=== PATIENT | male | born 1990 | race Caucasian/White ===

== ENCOUNTER → 2016-06-22 | Outpatient (CLI) | payer BC ==
[~2016-06-22] MED LIST: ADAL40KI; ALLO100T PO; APIX1TAB3 PO; AZAT50TA17 PO; BUDE1TAB PO; CALC1TAB9 PO; CHOL1000 PO; FOLI1TAB7 PO; MESA1.2T PO; MESA10002 PR; MESA4KIT PR; MULT-506 PO; PRED20TA PO; PROP20TA67 PO; SULF400T7 PO; SULF500T35 PO; TACR1CAP PO; TACR5CAP PO; TEST1INJ2; VEDO1INJ IV; [UNRECOGNIZED DRUG - CODE] PR; remicade IV
== END | disposition home or self-care (01) ==
LOC: C.LAB 12:13
PROVIDERS: ATTEND Internal Medicine Gastroenterology
DX: K51.90 Ulcerative colitis, unspecified, without complications (principal)

== ENCOUNTER → 2016-07-06 | Outpatient (CLI) | payer SELFPAY | END | disposition home or self-care (01) | LOC: C.LAB 12:25 | PROVIDERS: ATTEND Internal Medicine Gastroenterology | DX: K51.90 Ulcerative colitis, unspecified, without complications (principal) ==

== ENCOUNTER → 2016-10-05 | Outpatient (CLI) | payer BC ==
[~2016-10-05] MED LIST changes: -SULF400T7 PO; -TACR1CAP PO; -TACR5CAP PO
[2016-10-05 09:33] LABS: HEMATOCRIT 47.6 % (42-52)
== END | disposition home or self-care (01) ==
LOC: C.LAB 08:32
PROVIDERS: ATTEND Internal Medicine Endocrinology, Diabetes & Metabolism
DX: E29.1 Testicular hypofunction (principal)

== ENCOUNTER → 2017-04-22 | Outpatient (CLI) | payer BC, OTHER ==
[~2017-04-22] MED LIST changes: -ADAL40KI
== END | disposition home or self-care (01) ==
LOC: C.LAB 07:45
PROVIDERS: ATTEND Internal Medicine Endocrinology, Diabetes & Metabolism
DX: E29.1 Testicular hypofunction (principal)

== ENCOUNTER → 2017-07-13 | Outpatient (CLI) | payer OTHER ==
[~2017-07-13] MED LIST changes: -FOLI1TAB7 PO; +FOLI1TAB8 PO
[2017-07-13 18:06] LABS: BASO % 0.3 %; BASO ABS # 0.02 K/uL (0-0.2); HEMATOCRIT 49.6 % (42-52); HEMOGLOBIN 17.4 g/dL (14.0-18.0); IG# 0.14 K/uL (0.00-0.02); LYMPH ABS # 0.55 K/uL (1.2-3.4); MEAN CORPUSCULAR HGB CONC 35.1 g/dl (32-36); MEAN PLATELET VOLUME 8.9 fL (7.4-10.4); MONO % 8.4 %; MONO ABS # 0.66 K/uL (0.11-0.59); NEUT % 82.5 %; NEUT ABS # 6.48 K/uL (1.4-6.5); NUCLEATED RED BLOOD CELL ABS 0.02 K/uL (0-0); PLATELET COUNT 211 K/uL (130-400); RED CELL DISTRIBUTION WIDTH CV 15.6 % (11.5-14.5); RED CELL DISTRIBUTION WIDTH SD 64.9 fL (36.4-46.3); WHITE BLOOD COUNT 7.85 K/uL (4.8-10.8)
[2017-07-19 18:08] LABS: MUMPS VIRUS ANTIBODY IGM <1:20
== END | disposition home or self-care (01) ==
LOC: C.LAB 17:15
PROVIDERS: ATTEND Internal Medicine
DX: K11.20 Sialoadenitis, unspecified (principal)

== ENCOUNTER 2023-02-23 13:48 | Inpatient (IN) ==
--- NOTE | 2023-02-23 13:57 | ED Triage Note ---
Date of Service February 23, 2023 History of Present Illness This patient was briefly evaluated while in triage. An abbreviated physical exam was performed. This patient is a 32-year-old Male who presents to the ED for evaluation of fever and coughing up blood. The patient did have an abnormal CT scan 1 week ago, showing swollen lymph nodes. Blood is bright red in color, with occasional clots. Cough has been ongoing for the past 6 weeks. The patient has also had notable weight loss. The patient did see a PCP and chinese instructor for a condition. Patient also history of ulcerative colitis, history of lower extremity DVTs. Patient is also currently on Eliquis. Physical Exam CONSTITUTIONAL: Healthy and well nourished. Patient does not appear in any acute distress. HEENT: No scleral icterus or conjunctival injection. RESPIRATORY: Clear to auscultation bilaterally with no wheezing, crackles, rhonchi or stridor. CARDIOVASCULAR: Regular rate and rhythm with no murmurs, rubs or gallops. INTEGUMENTARY: No rash or other significant dermatologic conditions noted. HEMATOLOGIC: No ecchymosis or petechiae. PSYCHIATRIC: Positive affect. NEUROLOGIC: No focal neurologic deficits noted. Initial orders for labs and / or imaging were placed and patient was placed in the waiting area until a bed is available. Please see further documentation for the full ED course.
[2023-02-23] MEDS ORDERED: SODIUM CHLORIDE 0.9% 2,000 ML IV ONE (14:18)
[2023-02-23] MEDS ORDERED: SODIUM CHLORIDE 0.9% 250 ML IV ONE (14:18)
[2023-02-23] MEDS ORDERED: cefTRIAXone SODIUM 2,000 MG/70 ML BAG IV STA (14:19)
[2023-02-23] MEDS ORDERED: HYDROCORTISONE SOD SUCCINATE 100 MG/2 ML VIAL IV STA (14:20)
--- NOTE | 2023-02-23 14:23 | Emergency Department Note ---
Impression & Plan Multifocal pneumonia, Adrenal insufficiency, Hemoptysis ED Provider Note NAME: JENNIFER BENÍTEZ AGE: 32 SEX: M : 1990 ARRIVES VIA: Walk-In INFORMANT: Patient ED PROVIDER(S): Francisco Javier Barrios DO CHIEF COMPLAINT: coughing up blood and fever HPI: Patient is a 32-year-old male who presents the ER for cough and congestion which have been present for the past 2 weeks. Recently over the past 24 to 48 hours she has been coughing up blood. He admits to fevers of 101-102. Does have a history of ulcerative colitis and adrenally insufficient as on immune modulators. Does take Eliquis for previous DVTs and PEs. Has not missed any doses. Does feel very weak and rundown. Additional history given by mom who was present at bedside in regards to his past medical history. ADDITIONAL HISTORY OBTAINED: Per HPI Chronic Medical/Social Conditions Affecting Care: Per HPI PAST MEDICAL HISTORY:See Below PAST SURGICAL HISTORY:See Below FAMILY HISTORY:See Below SOCIAL HISTORY:See Below HOME MEDICATIONS:See Below ALLERGIES:See Below VITALS:See Below PHYSICAL EXAMINATION: GENERAL: Sitting up in bed, alert, chronically ill-appearing, disheveled, intermittent cough EYE EXAM: normal conjunctiva. PERRL and EOM's grossly intact. OROPHARYNX: mucous membranes are moist NECK: supple, no nuchal rigidity, no adenopathy, non-tender LUNGS: Clear to auscultation. Normal chest wall mechanics HEART: Tachycardic, S1 normal and S2 normal ABDOMEN: abdomen soft, non-tender, normo-active bowel sounds, no masses, no rebound or guarding. UPPER EXTREMITIES: upper extremities are grossly normal. LOWER EXTREMITIES: No pitting edema. NEURO EXAM: Normal sensorium, cranial nerves II-XII grossly intact, normal speech, no gross weakness of arms, no gross weakness of legs. MEDICAL DECISION MAKING: Patient is a 32-year-old male who presents ER for above-stated complaint. IV was established blood work was obtained. External history is obtained from mom at bedside. External records reviewed as described below. Patient was found to be tachycardic and tachypneic. Labs show leukocytosis of nearly 17,000. No significant anemia. Platelets elevated at 535. INR 1.2. Creatinine 1.5. Lactate was not elevated. Mild transaminitis. Pro-Rd was not elevated. UA with nitrates although likely secondary to the bilirubin. It was otherwise contaminated. Not convincing for UTI. Viral panel was negative and CT of the angio of the chest shows multifocal pneumonia per radiology. Patient was given IV Rocephin and azithromycin as well as IV fluids External Records Reviewed: PCP visit reviewed which showed abnormal CT of the chest with hilar adenopathy Consults/Care Managements Discussions: Per HPI Triage Nursing notes reviewed. Limited review of prior medical records performed Vital Signs: reviewed and remarkable for no significant abnormalities Differential diagnosis: Differential diagnosis includes etiologies such as sepsis, UTI, pneumonia, metabolic, electrolyte abnormalities, cardiac sources, intracerebral event, toxicologic, neurological, as well as others were entertained. ER treatment provided: See below Diagnostics interpreted by me include EKG and cardiac monitoring as listed below: -Cardiac Monitoring: An order was placed for continuous cardiac monitoring. The monitor shows a rate of 125 with sinus rhythm. -ECG: Sinus tachycardia rate of 120 Normal axis No PVCs QTc 422 -Laboratory studies:Interpreted by me as stated above in MDM and shown below. 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 See pt portal msg 04/26/21 for historical details. Bleeding ulcer Cellulitis of right leg Chronic ulcer of lower extremity DVT (deep venous thrombosis) Enteropathic arthritis Erythema nodosum Osteopenia Pyoderma gangrenosum Septic arthritis (01/17/14) Thrombophlebitis Ulcerative colitis Ureteric stone Vitamin D deficiency Surgical History No history of previous surgery Family History Denies family history of Ovarian cancer Prostate cancer Myocardial infarction Breast cancer Colorectal cancer Social History Smoking Status: Never smoker Second Hand Exposure: No; Hx Alcohol Use: No Hx Substance Use: No Preferred Language: Faroese Visual Impairment: No Limitations Hearing Ability: Normal marital status: Single Current Living Situation: Family current occupational status: student Feels Safe at Home: Yes Childhood Exposure to Second-Hand Smoke: No Dental Care, Regularly: Yes Physical Activity Frequency: Daily Seatbelt Use: always Sunscreen Use: Yes Allergies Allergies Allergy/AdvReac Type Severity Reaction Status Date / Time infliximab AdvReac Mild PLZ MIX Verified 02/18/23 10:17 REMICADE IN 500ML - PT DOESNT TOLERATE SMALLER VOL vedolizumab AdvReac Mild 600mg - Verified 02/18/23 10:17 must be in 500ml to tolerate Home Meds Home Medications Medication Instructions Recorded Confirmed calcium citrate 315 mg-vitamin D3 2 tabs PO BIDM ##0 03/08/15 02/23/23 5 mcg (200 unit) tablet (Calcium Citrate + D) multivitamin,tx-minerals 1 tab PO QPM #0 tabs 03/08/15 02/23/23 allopurinol 100 mg tablet 100 mg PO QPM #0 tabs 09/08/15 02/23/23 infliximab 100 mg intravenous 20 mg IV q 4 wks #0 ea 11/12/20 02/23/23 solution (Remicade) azathioprine 50 mg tablet 100 mg PO HS #0 tabs 04/30/21 02/23/23 apixaban 5 mg tablet 5 mg PO BID ##0 02/17/23 02/23/23 bupropion HCl 200 mg tablet,12 hr 200 mg PO BID 02/23/23 02/23/23 sustained-release cholecalciferol (vitamin D3) 25 8,000 mcg PO HS 02/23/23 02/23/23 mcg (1,000 unit) tablet (Vitamin D3) folic acid 1 mg tablet 1 mg PO QAM 02/23/23 02/23/23 hydrocortisone 5 mg tablet See Rx Instructions .Route .COMPLEX 02/23/23 02/23/23 levothyroxine 125 mcg tablet 125 mcg PO DAILYBB 02/23/23 02/23/23 liothyronine 25 mcg tablet 25 mcg PO DAILYBB 02/23/23 02/23/23 ondansetron 4 mg disintegrating 4 mg translingual Q8 PRN Nausea 02/23/23 02/23/23 tablet testosterone cypionate 200 mg/mL 250 mg IM WK 02/23/23 02/23/23 intramuscular oil Results & Data (ED) Vital Signs Vital Signs - 24 hr 02/23/23 13:53 02/23/23 14:37 02/23/23 16:10 Temperature 36.8 C 36.8 C Temperature Source Temporal Artery Scan Oral Pulse Rate 177 H 120 H Pulse Rate [Apical] 105 H Respiratory Rate 18 20 Respiratory Effort / Characteristics Non-Labored Respiratory Depth Normal Blood Pressure 116/75 Blood Pressure [Right Arm] 139/93 Blood Pressure Mean 88 Blood Pressure Mean [Right Arm] 108 Blood Pressure Position [Right Arm] Lying Pulse Oximetry 96 97 Oxygen Delivery Method Room Air Room Air Sepsis Recent Fever Within 48 Hours No Sepsis New/Unexplained Change in Mental Status No Sepsis Action Taken by Nursing No Action Required 02/23/23 15:10 02/23/23 18:04 02/23/23 18:05 Temperature Temperature Source Pulse Rate 109 H 102 H 99 H Pulse Rate [Apical] Respiratory Rate 31 H 24 26 H Respiratory Effort / Characteristics Respiratory Depth Blood Pressure 117/86 Blood Pressure [Right Arm] Blood Pressure Mean 92 Blood Pressure Mean [Right Arm] Blood Pressure Position [Right Arm] Pulse Oximetry 96 Oxygen Delivery Method Room Air Sepsis Recent Fever Within 48 Hours Sepsis New/Unexplained Change in Mental Status Sepsis Action Taken by Nursing Laboratory Data 02/23/23 14:16 02/23/23 14:16 Lab Results 02/23/23 02/23/23 02/23/23 Range/Units 14:10 14:16 14:16 WBC 16.69 H (4.8-10.8) K/ul RBC 4.58 L (4.70-6.10) M/uL Hgb 13.3 L (14.0-18.0) g/dl Hct 40.6 L (42.0-52.0) % MCV 88.6 (80.0-100.0) fL MCH 29.0 (25.0-34.0) pg MCHC 32.8 (32.0-36.0) g/dL RDW Std Deviation 57.4 H (36.4-46.3) fL RDW Coeff of Sidra 18.0 H (11.5-14.5) % Plt Count 535 H (130-400) K/uL MPV 8.2 L (9.4-12.4) fL Immature Gran % (Auto) 0.6 % Neut % (Auto) 87.1 % Lymph % (Auto) 4.9 % Winston % (Auto) 6.7 % Eos % (Auto) 0.4 % Baso % (Auto) 0.3 % Neut # (Auto) 14.54 H (1.40-6.50) K/uL Lymph # (Auto) 0.81 L (1.20-3.40) K/uL Winston # (Auto) 1.12 H (0.11-0.59) K/uL Eos # (Auto) 0.07 (0.00-0.50) K/uL Baso # (Auto) 0.05 (0.00-0.20) K/uL Immature Gran # (Auto) 0.10 (0.01-0.20) K/uL PT (9.0-12.0) Seconds INR (0.9-1.1) APTT (21.0-31.0) Seconds PTT Ratio Sodium 137 (136-145) mmol/L Potassium 4.1 (3.5-5.1) mmol/L Chloride 101 (98-107) mmol/L Carbon Dioxide 28 (21-32) mmol/L Anion Gap 8 (3-11) BUN 17 (6-23) mg/dl Creatinine 1.56 H D (0.6-1.4) mg/dl Est Cr Clr Drug Dosing 66.3 ml/min Est GFR ( Amer) 67.1 ml/min Est GFR (Non-Af Amer) 57.9 ml/min BUN/Creatinine Ratio 10.9 (10-20) Glucose 118 H (70-99(Fasting)) mg/dl Lactate (0.4-2.0) mmol/L Calcium 9.3 (8.6-10.3) mg/dl Magnesium 1.8 (1.7-2.4) mg/dl Total Bilirubin 1.4 H (0.2-1.0) mg/dl Direct Bilirubin 0.6 H (0-0.2) mg/dl AST 40 H (13-39) U/L ALT 57 H (7-52) U/L Alkaline Phosphatase 110 H (34-104) U/L Total Protein 6.8 (6.0-8.3) gm/dl Albumin 3.4 (3.4-5.0) gm/dl Procalcitonin (0-0.5) ng/ml Urine Color [place] Urine Appearance Clear (Clear) Urine pH 6.0 (4.5-7.5) Ur Specific [place] 1.032 H (1.000-1.030) Urine Protein 1+ H (Negative) Urine Glucose (UA) Negative (Negative) Urine Ketones Trace H (Negative) Urine Blood 1+ H (Negative) Urine Nitrite Positive A (Negative) Urine Bilirubin 1+ H (Negative) Urine Urobilinogen Negative (Negative) Ur Leukocyte Esterase Trace H (Negative) Urine WBC (Auto) 1-5 (0-5) /hpf Urine RBC (Auto) 5-10 H (0-4) /hpf U Hyaline Cast (Auto) 5-10 H (0-5) /lpf U Epithel Cells (Auto) 10-20 H (0-5) /lpf Urine Bacteria (Auto) Negative (Negative) Urine Yeast Not Reportable Urine Sperm Present A (None Prsent) Adenovirus (PCR) (NotDetected) B. pertussis DNA (PCR) (NotDetected) B.parapertussis DNA PCR (NotDetected) C. pneumoniae DNA (PCR) (NotDetected) Coronavirus OC43 (PCR) (NotDetected) Coronavirus HKU1 (PCR) (NotDetected) Coronavirus 229E (PCR) (NotDetected) SARS-CoV-2 (PCR) (NotDetected) Coronavirus NL63 (PCR) (NotDetected) Human Metapneumovir PCR (NotDetected) Influenza Type A (PCR) (NotDetected) Influenza Type B (PCR) (NotDetected) M. pneumoniae (PCR) (NotDetected) Parainfluenza 1 (PCR) (NotDetected) Parainfluenza 2 (PCR) (NotDetected) Parainfluenza 3 (PCR) (NotDetected) Parainfluenza 4 (PCR) (NotDetected) RSV (PCR) (NotDetected) Entero/Rhino (PCR) (NotDetected) 02/23/23 02/23/23 02/23/23 Range/Units 14:16 14:16 14:25 WBC (4.8-10.8) K/ul RBC (4.70-6.10) M/uL Hgb (14.0-18.0) g/dl Hct (42.0-52.0) % MCV (80.0-100.0) fL MCH (25.0-34.0) pg MCHC (32.0-36.0) g/dL RDW Std Deviation (36.4-46.3) fL RDW Coeff of Sidra (11.5-14.5) % Plt Count (130-400) K/uL MPV (9.4-12.4) fL Immature Gran % (Auto) % Neut % (Auto) % Lymph % (Auto) % Winston % (Auto) % Eos % (Auto) % Baso % (Auto) % Neut # (Auto) (1.40-6.50) K/uL Lymph # (Auto) (1.20-3.40) K/uL Winston # (Auto) (0.11-0.59) K/uL Eos # (Auto) (0.00-0.50) K/uL Baso # (Auto) (0.00-0.20) K/uL Immature Gran # (Auto) (0.01-0.20) K/uL PT 13.4 H (9.0-12.0) Seconds INR 1.2 H (0.9-1.1) APTT 35.0 H (21.0-31.0) Seconds PTT Ratio 1.2 Sodium (136-145) mmol/L Potassium (3.5-5.1) mmol/L Chloride (98-107) mmol/L Carbon Dioxide (21-32) mmol/L Anion Gap (3-11) BUN (6-23) mg/dl Creatinine (0.6-1.4) mg/dl Est Cr Clr Drug Dosing ml/min Est GFR ( Amer) ml/min Est GFR (Non-Af Amer) ml/min BUN/Creatinine Ratio (10-20) Glucose (70-99(Fasting)) mg/dl Lactate (0.4-2.0) mmol/L Calcium (8.6-10.3) mg/dl Magnesium (1.7-2.4) mg/dl Total Bilirubin (0.2-1.0) mg/dl Direct Bilirubin (0-0.2) mg/dl AST (13-39) U/L ALT (7-52) U/L Alkaline Phosphatase (34-104) U/L Total Protein (6.0-8.3) gm/dl Albumin (3.4-5.0) gm/dl Procalcitonin 0.26 (0-0.5) ng/ml Urine Color Urine Appearance (Clear) Urine pH (4.5-7.5) Ur Specific [place] (1.000-1.030) Urine Protein (Negative) Urine Glucose (UA) (Negative) Urine Ketones (Negative) Urine Blood (Negative) Urine Nitrite (Negative) Urine Bilirubin (Negative) Urine Urobilinogen (Negative) Ur Leukocyte Esterase (Negative) Urine WBC (Auto) (0-5) /hpf Urine RBC (Auto) (0-4) /hpf U Hyaline Cast (Auto) (0-5) /lpf U Epithel Cells (Auto) (0-5) /lpf Urine Bacteria (Auto) (Negative) Urine Yeast Urine Sperm (None Prsent) Adenovirus (PCR) Not Detected (NotDetected) B. pertussis DNA (PCR) Not Detected (NotDetected) B.parapertussis DNA PCR Not Detected (NotDetected) C. pneumoniae DNA (PCR) Not Detected (NotDetected) Coronavirus OC43 (PCR) Not Detected (NotDetected) Coronavirus HKU1 (PCR) Not Detected (NotDetected) Coronavirus 229E (PCR) Not Detected (NotDetected) SARS-CoV-2 (PCR) Not Detected (NotDetected) Coronavirus NL63 (PCR) Not Detected (NotDetected) Human Metapneumovir PCR Not Detected (NotDetected) Influenza Type A (PCR) Not Detected (NotDetected) Influenza Type B (PCR) Not Detected (NotDetected) M. pneumoniae (PCR) Not Detected (NotDetected) Parainfluenza 1 (PCR) Not Detected (NotDetected) Parainfluenza 2 (PCR) Not Detected (NotDetected) Parainfluenza 3 (PCR) Not Detected (NotDetected) Parainfluenza 4 (PCR) Not Detected (NotDetected) RSV (PCR) Not Detected (NotDetected) Entero/Rhino (PCR) Not Detected (NotDetected) 02/23/23 Range/Units 14:55 WBC (4.8-10.8) K/ul RBC (4.70-6.10) M/uL Hgb (14.0-18.0) g/dl Hct (42.0-52.0) % MCV (80.0-100.0) fL MCH (25.0-34.0) pg MCHC (32.0-36.0) g/dL RDW Std Deviation (36.4-46.3) fL RDW Coeff of Sidra (11.5-14.5) % Plt Count (130-400) K/uL MPV (9.4-12.4) fL Immature Gran % (Auto) % Neut % (Auto) % Lymph % (Auto) % Winston % (Auto) % Eos % (Auto) % Baso % (Auto) % Neut # (Auto) (1.40-6.50) K/uL Lymph # (Auto) (1.20-3.40) K/uL Winston # (Auto) (0.11-0.59) K/uL Eos # (Auto) (0.00-0.50) K/uL Baso # (Auto) (0.00-0.20) K/uL Immature Gran # (Auto) (0.01-0.20) K/uL PT (9.0-12.0) Seconds INR (0.9-1.1) APTT (21.0-31.0) Seconds PTT Ratio Sodium (136-145) mmol/L Potassium (3.5-5.1) mmol/L Chloride (98-107) mmol/L Carbon Dioxide (21-32) mmol/L Anion Gap (3-11) BUN (6-23) mg/dl Creatinine (0.6-1.4) mg/dl Est Cr Clr Drug Dosing ml/min Est GFR ( Amer) ml/min Est GFR (Non-Af Amer) ml/min BUN/Creatinine Ratio (10-20) Glucose (70-99(Fasting)) mg/dl Lactate 1.3 (0.4-2.0) mmol/L Calcium (8.6-10.3) mg/dl Magnesium (1.7-2.4) mg/dl Total Bilirubin (0.2-1.0) mg/dl Direct Bilirubin (0-0.2) mg/dl AST (13-39) U/L ALT (7-52) U/L Alkaline Phosphatase (34-104) U/L Total Protein (6.0-8.3) gm/dl Albumin (3.4-5.0) gm/dl Procalcitonin (0-0.5) ng/ml Urine Color Urine Appearance (Clear) Urine pH (4.5-7.5) Ur Specific [place] (1.000-1.030) Urine Protein (Negative) Urine Glucose (UA) (Negative) Urine Ketones (Negative) Urine Blood (Negative) Urine Nitrite (Negative) Urine Bilirubin (Negative) Urine Urobilinogen (Negative) Ur Leukocyte Esterase (Negative) Urine WBC (Auto) (0-5) /hpf Urine RBC (Auto) (0-4) /hpf U Hyaline Cast (Auto) (0-5) /lpf U Epithel Cells (Auto) (0-5) /lpf Urine Bacteria (Auto) (Negative) Urine Yeast Urine Sperm (None Prsent) Adenovirus (PCR) (NotDetected) B. pertussis DNA (PCR) (NotDetected) B.parapertussis DNA PCR (NotDetected) C. pneumoniae DNA (PCR) (NotDetected) Coronavirus OC43 (PCR) (NotDetected) Coronavirus HKU1 (PCR) (NotDetected) Coronavirus 229E (PCR) (NotDetected) SARS-CoV-2 (PCR) (NotDetected) Coronavirus NL63 (PCR) (NotDetected) Human Metapneumovir PCR (NotDetected) Influenza Type A (PCR) (NotDetected) Influenza Type B (PCR) (NotDetected) M. pneumoniae (PCR) (NotDetected) Parainfluenza 1 (PCR) (NotDetected) Parainfluenza 2 (PCR) (NotDetected) Parainfluenza 3 (PCR) (NotDetected) Parainfluenza 4 (PCR) (NotDetected) RSV (PCR) (NotDetected) Entero/Rhino (PCR) (NotDetected) Administered Medications Discontinued Medications Hydrocortisone Sodium Succinate (Hydrocortisone Sod Succinate 100 Mg/2 Ml Vial) 50 mg IV NOW STA Stop: 02/23/23 14:21 Last Admin: 02/23/23 14:38 Dose: 50 mg Documented By: ARANZA Sodium Chloride (Nss) 2,000 mls @ 999 mls/hr IV .Q2H1M ONE Stop: 02/23/23 16:18 Last Infusion: 02/23/23 16:57 Dose: 0 mls/hr Documented By: Admin: 02/23/23 14:36 Dose: 999 mls/hr Documented By: ARANZA Sodium Chloride (Nss) 250 mls @ 999 mls/hr IV .Q16M ONE Stop: 02/23/23 14:33 Last Infusion: 02/23/23 15:24 Dose: 0 mls/hr Documented By: Admin: 02/23/23 14:36 Dose: 999 mls/hr Documented By: ARANZA Ceftriaxone Sodium (Rocephin) 2,000 mg in 70 mls @ 140 mls/hr IV NOW STA Stop: 02/23/23 14:48 Last Infusion: 02/23/23 16:35 Dose: 0 mls/hr Documented By: Admin: 02/23/23 15:22 Dose: 140 mls/hr Documented By: ARELI Azithromycin 500 mg/ Dextrose 255 mls @ 127.5 mls/hr IV NOW STA Stop: 02/23/23 18:24 Last Infusion: 02/23/23 19:13 Dose: 0 mls/hr Documented By: Admin: 02/23/23 16:57 Dose: 127.5 mls/hr Documented By: ARELI Ioversol (Optiray 320 125ml) 119 ml IV ONCE ONE Stop: 02/23/23 15:45 Last Admin: 02/23/23 15:45 Dose: 119 ml Documented By: DANYEL Imaging Data Radiologist's Impression: Chest CTA 02/23/23 14:18 CT angio chest PE protocol CLINICAL HISTORY: PE, coughing up blood TECHNIQUE: Multidetector row helical CT of the chest was performed with angiographic protocol. Coronal and sagittal reformations were obtained. Coronal and sagittal MIPS were obtained from the axial data set and were submitted for review. Automated dose lowering techniques and/or adjustment according to patient size were utilized for this exam. CT DOSE: 788.99 mGy.cm Comparison: Comparison is made to CT chest 02/11/2023 and chest radiograph 02/23/2023 FINDINGS: Lungs and pleura: There is patchy consolidation and nodularity throughout the lungs. Small bilateral pleural effusions are seen. Heart and pericardium: Heart size is normal. No pericardial effusion. Vessels: Evaluation for pulmonary embolism is limited due to suboptimal contrast timing. No evidence of central, lobar, or segmental embolus. Mediastinum and mitzi: Numerous enlarged bilateral mediastinal and hilar lymph nodes are seen. Chest wall and lower neck: Unremarkable. Abdomen: Unremarkable. Bones: Unremarkable. IMPRESSION: 1. No acute abnormality and in particular no evidence of pulmonary embolus. 2. Multifocal consolidative opacities compatible with pneumonia with reactive lymphadenopathy. 3. Small bilateral pleural effusions. ACT 112: Negative or not required by law. Electronically signed by: Neto Ruelas M.D. 02/23/2023 4:02 PM Chest X-Ray 02/23/23 14:18 XR chest 1V portable HISTORY: Sepsis COMPARISON: Chest 02/08/2023. FINDINGS: No pneumothorax. No pleural effusions. The cardiac silhouette is normal in size. No evidence for pulmonary edema. Patchy airspace opacities within the bilateral mid to lower lung zones. This has slightly progressed in the interval. No acute fractures. IMPRESSION: Patchy bilateral airspace opacities within the mid to lower lung zones which has slightly progressed. This likely represents a pneumonia and could be due to a viral process. ACT 112: Negative or not required by law. Electronically signed by: Isaias Bolivar M.D. 02/23/2023 3:22 PM Discharge Plan Visit Data Chief Complaint: Fever ED Provider: Francisco Javier Barrios Discharge Problem: Multifocal pneumonia, Adrenal insufficiency, Hemoptysis Forms Stand Alone Forms: My [facility] Prescriptions Prescriptions: No Action multivitamin,tx-minerals Tablet 1 tab PO QPM Qty: 0 calcium citrate-vitamin D3 [Calcium Citrate + D] 315-200 mg-unit Tablet 2 tabs PO BIDM Qty: 0 allopurinol 100 mg Tablet 100 mg PO QPM Qty: 0 Remicade 100 mg recon soln 20 mg IV q 4 wks Qty: 0 apixaban 5 mg tablet 5 mg PO BID Qty: 0 azathioprine 50 mg tablet 100 mg PO HS Qty: 0 liothyronine 25 mcg tablet 25 mcg PO DAILYBB testosterone cypionate 200 mg/mL oil 250 mg IM WK Rx Instructions: take on tuesday cholecalciferol (vitamin D3) [Vitamin D3] 25 mcg (1,000 unit) Tablet 8,000 mcg PO HS hydrocortisone 5 mg tablet See Rx Instructions .ROUTE .COMPLEX Rx Instructions: take 15mg orally in the morning;and take 5mg at lunchtime levothyroxine 125 mcg tablet 125 mcg PO DAILYBB folic acid 1 mg Tablet 1 mg PO QAM bupropion HCl 200 mg tablet sustained-release 12 hr 200 mg PO BID ondansetron 4 mg tablet,disintegrating 4 mg translingual Q8 PRN (Reason: Nausea) Referrals Referrals: ProDarren MD [Primary Care Provider] -
[2023-02-23 14:44] LABS: Basophils # (auto) 0.05 K/uL (0.00-0.20); Basophils % (auto) 0.3 %; Eosinophils # (auto) 0.07 K/uL (0.00-0.50); Eosinophils % (auto) 0.4 %; Hematocrit (blood only) 40.6 % (42.0-52.0); Hemoglobin 13.3 g/dl (14.0-18.0); Immature Granulocytes % (auto) 0.6 %; Lymphocytes # (auto) 0.81 K/uL (1.20-3.40); Lymphocytes % (auto) 4.9 %; Mean Corpuscular Hgb Conc 32.8 g/dL (32.0-36.0); Mean Corpuscular Volume 88.6 fL (80.0-100.0); Mean Platelet Volume 8.2 fL (9.4-12.4); Monocytes # (auto) 1.12 K/uL (0.11-0.59); Monocytes % (auto) 6.7 %; Neutrophils # (auto) 14.54 K/uL (1.40-6.50); Neutrophils % (auto) 87.1 %; Platelet Count 535 K/uL (130-400); RDW Standard Deviation 57.4 fL (36.4-46.3); Red Blood Count 4.58 M/uL (4.70-6.10); White Blood Count 16.69 K/ul (4.8-10.8)
[2023-02-23 14:46] LABS: Appearance Urine Clear (Clear); Bacteria Urine Automated Negative (Negative); Blood Urine 1+ (Negative); Color Urine Orange; Glucose Urine UA Negative (Negative); Ketones Urine Trace (Negative); Leukocyte Esterase Urine Trace (Negative); Nitrite Urine Positive (Negative); Protein Urine 1+ (Negative); Specific Gravity Urine 1.032 (1.000-1.030); Urobilinogen Urine Negative (Negative)
[2023-02-23 15:05] LABS: Albumin Level 3.4 gm/dl (3.4-5.0); BUN Creatinine Ratio 10.9 (10-20); Bilirubin Direct 0.6 mg/dl (0-0.2); Bilirubin,Total 1.4 mg/dl (0.2-1.0); Calcium 9.3 mg/dl (8.6-10.3); Creatinine Clr Calc Pharmacy 66.3 ml/min; Est GFR (African American) 67.1 ml/min; Est GFR (Non-African American) 57.9 ml/min; Magnesium 1.8 mg/dl (1.7-2.4); Potassium 4.1 mmol/L (3.5-5.1); Total Protein 6.8 gm/dl (6.0-8.3)
[2023-02-23 15:20] LABS: Bilirubin Urine 1+ (Negative)
--- NOTE | 2023-02-23 15:23 | XRay Report ---
XR chest 1V portable HISTORY: Sepsis COMPARISON: Chest 02/08/2023. FINDINGS: No pneumothorax. No pleural effusions. The cardiac silhouette is normal in size. No evidenc e for pulmonary edema. Patchy airspace opacities within the bilateral mid to lower lung zones. This h as slightly progressed in the interval. No acute fractures. IMPRESSION: Patchy bilateral airspace opacities within the mid to lower lung zones which has slightly progressed. This likely represents a pneumonia and could be due to a viral process. ACT 112: Negative or not required by law. Electronically signed by: Isaias Bolivar M.D. 02/23/2023 3:22 PM
[2023-02-23 15:32] LABS: Adenovirus PCR Not Detected (NotDetected); Bordetella parapertussis PCR Not Detected (NotDetected); Bordetella pertussis PCR Not Detected (NotDetected); Chlamydia pneumoniae PCR Not Detected (NotDetected); Coronavirus 229E PCR Not Detected (NotDetected); Coronavirus CoV-2 (COVID19)PCR Not Detected (NotDetected); Coronavirus HKU1 PCR Not Detected (NotDetected); Coronavirus NL63 PCR Not Detected (NotDetected); Coronavirus OC43PCR Not Detected (NotDetected); Human Metapneumovirus PCR Not Detected (NotDetected); Influenza A PCR Not Detected (NotDetected); Influenza B PCR Not Detected (NotDetected); Mycoplasma pneumoniae PCR Not Detected (NotDetected); Parainfluenza Virus 1 PCR Not Detected (NotDetected); Parainfluenza Virus 2 PCR Not Detected (NotDetected); Parainfluenza Virus 3 PCR Not Detected (NotDetected); Parainfluenza Virus 4 PCR Not Detected (NotDetected); Respiratory Syncytial VirusPCR Not Detected (NotDetected); Rhinovirus/Enterovirus PCR Not Detected (NotDetected)
[2023-02-23 15:33] LABS: INR 1.2 (0.9-1.1); Partial Thromboplastin Ratio 1.2; Prothrombin Time 13.4 Seconds (9.0-12.0)
[2023-02-23] MEDS ORDERED: OPTIRAY 320 125ml IV ONE (15:44)
--- NOTE | 2023-02-23 16:04 | CT Scan Report ---
CT angio chest PE protocol CLINICAL HISTORY: PE, coughing up blood TECHNIQUE: Multidetector row helical CT of the chest was performed with angiographic protocol. Valdes l and sagittal reformations were obtained. Coronal and sagittal MIPS were obtained from the axial laura a set and were submitted for review. Automated dose lowering techniques and/or adjustment according to patient size were utilized for this exam. CT DOSE: 788.99 mGy.cm Comparison: Comparison is made to CT chest 02/11/2023 and chest radiograph 02/23/2023 FINDINGS: Lungs and pleura: There is patchy consolidation and nodularity throughout the lungs. Small bilateral pleural effusions are seen. Heart and pericardium: Heart size is normal. No pericardial effusion. Vessels: Evaluation for pulmonary embolism is limited due to suboptimal contrast timing. No evidence of central, lobar, or segmental embolus. Mediastinum and mitzi: Numerous enlarged bilateral mediastinal and hilar lymph nodes are seen. Chest wall and lower neck: Unremarkable. Abdomen: Unremarkable. Bones: Unremarkable. IMPRESSION: 1. No acute abnormality and in particular no evidence of pulmonary embolus. 2. Multifocal consolidative opacities compatible with pneumonia with reactive lymphadenopathy. 3. Small bilateral pleural effusions. ACT 112: Negative or not required by law. Electronically signed by: Neto Ruelas M.D. 02/23/2023 4:02 PM
[2023-02-23 16:10] LABS: Sperm Urine Present (None Prsent)
[2023-02-23] MEDS ORDERED: AZITHROMYCIN 500 MG in DEXTROSE 5% 250 ML IV STA (16:25)
--- NOTE | 2023-02-23 19:24 | History & Physical Report ---
Date of Service February 23, 2023 Assessment & Plan (1) Multifocal pneumonia: Plan: Fever, chills suspect multifocal pneumonia Patient with cough, fever, chills, hemoptysis as outpt. was treated as outpatient with Bactrim without improvement Patient with underlying immunocompromise on infliximab/azathioprine Leukocytosis of 16, tachycardic and tachypneic at presentation. Lactate normal. 30 cc/kg actual body weight 2070 cc. Patient has received 2250 cc by time of hospitalist consultation. Has received Rocephin/azithromycin. No history of resistant infections. Given high burden of illness, failure to improve on Bactrim/azithromycin will continue on cefepime/doxy. MRSA nares pending, if positive add vancomycin. Patient extremely concerned about C. difficile, and notes his family have very high risk of both acquiring C. difficile due to his immunocompromise and morbidity due to his underlying ulcerative colitis and comorbidities. Will place on prophylactic Vanco p.o. daily while on broad antibiotics DDx includes sarcoid, granulomatous disease for which he was pending EBUS. Has a history of mediastinal lymphadenopathy. DDx includes infectious/autoimmune/lymphoma. apixaban has been held in the setting of possible EBUS and hemoptysis. Patient did discuss this with pulmonology both [place] [facility] and male. If possible male prefers to have this performed at their clinic and he was scheduled in 2 weeks. EKG sinus tachycardia on admission BC pending Sputum culture ordered Fungitell pending - Susana level pending MARCIA Creatinine 1.56, baseline approximately 1.28 Suspect prerenal in the setting of pneumonia. Fluids as noted, trend daily. Renally dose medications as needed Ulcerative colitis Infliximab/azathioprine temporarily held - No infusions due until next tuesday No signs of acute flare Adrenal insufficiency, hypopituitarism Home dosing hydrocortisone 15 mg a.m., 5 mg lunchtime Received 50 mg hydrocortisone while in ER We will continue stress dosing 30 mg a.m./10 mg p.m. - Testosterone IM on Tuesdays. Took 02/22. Additional dosing not currently indicated Hypothyroidism Continue Synthroid, liothyronine Recurrent DVT 2014 and 2015. Suspected w/ chronic inflammatory state Compliant with apixaban. Held pending pulm eval and with hemoptysis Depression/anxiety/PTSD With stress around his illness which has contributed to IBD flares in the past Follows with [facility] psychologist Dr. Opheim Buproprion 200mg PO BID working well for him. History of autoimmune hepatitis, hyperbilirubinemia, transaminitis - Follows w/ [facility]. Dr. Sheppard. Continue steroids as noted Trend LFTs daily T. bili, transaminases mildly elevated near prior baseline range on admission DVT prophylaxis: SCDs, apixaban held for hemoptysis and for pulm eval CODE STATUS: Full code Disposition: Medical telemetry for sinus tachycardia Diet: N.p.o. at midnight (2) Ulcerative colitis: (3) Adrenal insufficiency: (4) Hyperbilirubinemia: (5) Autoimmune hepatitis: (6) Asthma: History of Present Illness Primary Care Provider: Darren Flowers MD Laci is a 32-year-old male with a past medical history of ulcerative colitis, autoimmune hepatitis, DVT, and asthma who presents with hemoptysis and imaging consistent with multifocal pneumonia. No evidence of PE is noted on CTA. He is recommended for admission for treatment of multifocal pneumonia with underlying immune compromise. Hemoptysis for 4-6 weeks, intermittent cough. Changed yesterday when he developed fever, chills, and night sweats. No stomach pain. Abdomen has been sore before with coughing. Denies UC flare. Denies bloody bowel movements and abd pain. Has had 'a bit of a cough' chronically in the past, noticed in terra past has improved with solumedrol shot in the past with UC infusion. Endorses shortness of breath wosrening over the last few weeks different from this, and seems worse today and yesterday. Denies chest pain or chest pressure Appetite diminished, so eating less and +weight loss 5-10 pounds over last few weeks due to fatigue and poor appetite. No vomiting. Endorses hx of AI due to being on predisone for several years in the past. Hydrocortisone normally 15/5. has not stress dosed this week. 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 Medical History: Reviewed Medications: Reviewed Surgical History: Reviewed Family history: Reviewed Allergies: Reviewed Social History: REviewed Code Status: Full Allergies Allergy/AdvReac Type Severity Reaction Status Date / Time infliximab AdvReac Mild PLZ MIX Verified 02/18/23 10:17 REMICADE IN 500ML - PT DOESNT TOLERATE SMALLER VOL vedolizumab AdvReac Mild 600mg - Verified 02/18/23 10:17 must be in 500ml to tolerate Home Medications Medication Instructions Recorded Confirmed Type calcium citrate 315 mg-vitamin D3 2 tabs PO BIDM ##0 03/08/15 02/23/23 History 5 mcg (200 unit) tablet (Calcium Citrate + D) multivitamin,tx-minerals 1 tab PO QPM #0 tabs 03/08/15 02/23/23 History allopurinol 100 mg tablet 100 mg PO QPM #0 tabs 09/08/15 02/23/23 History infliximab 100 mg intravenous 20 mg IV q 4 wks #0 ea 11/12/20 02/23/23 History solution (Remicade) azathioprine 50 mg tablet 100 mg PO HS #0 tabs 04/30/21 02/23/23 History apixaban 5 mg tablet 5 mg PO BID ##0 02/17/23 02/23/23 History bupropion HCl 200 mg tablet,12 hr 200 mg PO BID 02/23/23 02/23/23 History sustained-release cholecalciferol (vitamin D3) 25 8,000 mcg PO HS 02/23/23 02/23/23 History mcg (1,000 unit) tablet (Vitamin D3) folic acid 1 mg tablet 1 mg PO QAM 02/23/23 02/23/23 History hydrocortisone 5 mg tablet See Rx Instructions .Route .COMPLEX 02/23/23 02/23/23 History levothyroxine 125 mcg tablet 125 mcg PO DAILYBB 02/23/23 02/23/23 History liothyronine 25 mcg tablet 25 mcg PO DAILYBB 02/23/23 02/23/23 History ondansetron 4 mg disintegrating 4 mg translingual Q8 PRN Nausea 02/23/23 02/23/23 History tablet testosterone cypionate 200 mg/mL 250 mg IM WK 02/23/23 02/23/23 History intramuscular oil Past Med/Surg History Medical History Adrenal insufficiency Anxiety about health with concomitant depression Autoimmune hepatitis suspected seronegative autoimmune etiology, followed by [facility]. See pt portal msg 04/26/21 for historical details. Bleeding ulcer Cellulitis of right leg Chronic ulcer of lower extremity DVT (deep venous thrombosis) Enteropathic arthritis Erythema nodosum Osteopenia Pyoderma gangrenosum Septic arthritis (01/17/14) Thrombophlebitis Ulcerative colitis Ureteric stone Vitamin D deficiency Surgical History No history of previous surgery Family History Denies family history of Ovarian cancer Prostate cancer Myocardial infarction Breast cancer Colorectal cancer Social History Smoking Status: Never smoker Second Hand Exposure: No; Hx Alcohol Use: No Hx Substance Use: No Preferred Language: Sri Lankan Visual Impairment: No Limitations Hearing Ability: Normal marital status: Single Current Living Situation: Family current occupational status: student Feels Safe at Home: Yes Childhood Exposure to Second-Hand Smoke: No Dental Care, Regularly: Yes Physical Activity Frequency: Daily Seatbelt Use: always Sunscreen Use: Yes Review of Systems Review of Systems: All systems reviewed & are unremarkable except as noted in HPI & below Physical Exam Physical Exam: General: A&Ox3. NAD. Cooperative. HEENT: Atraumatic, normocephalic. Vision/hearing grossly intact Pulm: CTAB A&P. -wheezes, -rales, -rhonchi. Symmetrical chest rise. No increased work of breathing. No respiratory distress. Cardiac: RRR, -mrg. Radial pulses intact and symmetrical. Abdominal: Nontender, nondistended, soft. BS present. Ext: warm, dry. Moves all extremities equally. Results & Data Results & Data Vital Signs (Past 12 Hours) Vital Signs Temp Pulse Pulse Resp BP BP Pulse Ox 02/23/23 18:05 99 H 26 H 02/23/23 18:04 102 H 24 117/86 96 02/23/23 15:10 109 H 31 H 02/23/23 16:10 36.8 C 105 H 20 139/93 97 02/23/23 14:37 120 H 02/23/23 13:53 36.8 C 177 H 18 116/75 96 O2 Del Method 02/23/23 18:05 02/23/23 18:04 Room Air 02/23/23 15:10 02/23/23 16:10 Room Air 02/23/23 14:37 02/23/23 13:53 Room Air PG Care Time/CCT Total # of Minutes Spent Total Time Spent with Patient: Total time spent is greater than 50% in coordination of care (as documented) at patient's floor/unit and/or counseling patient: Coding Level of Care Code 56272 INT INP/OBS CARE MIN Diagnoses Multifocal pneumonia J18.9 Ulcerative colitis K51.90 Adrenal insufficiency E27.40 Hyperbilirubinemia E80.6 Autoimmune hepatitis K75.4 Asthma J45.909
[2023-02-24] MEDS: buPROPion SR 100 MG TABCR PO SCH ×3 (00:11→20:50)
[2023-02-24] MEDS: allopurinoL 100 MG TAB PO SCH ×2 (00:11→20:49)
[2023-02-24] MEDS: VANCOMYCIN HCL 125 MG/2.5ML SOLN PO SCH ×2 (00:12→14:59)
[2023-02-24] MEDS: CEFEPIME 2,000 MG in SYRINGE 0 ML IV SCH ×4 (00:12→23:17)
[2023-02-24] MEDS: CHOLECALCIFEROL 5,000 UNITS 125 MCG TAB PO SCH ×2 (00:12→20:49)
[2023-02-24] MEDS: CHERRY SYRUP 5 ML UDP PO SCH ×2 (00:12→14:58)
[2023-02-24] MEDS: CHOLECALCIFEROL 1,000 UNITS 25 MCG TAB PO SCH ×2 (00:12→20:49)
[2023-02-24 05:11] LABS: Basophils # (auto) 0.03 K/uL (0.00-0.20); Basophils % (auto) 0.3 %; Eosinophils # (auto) 0.07 K/uL (0.00-0.50); Eosinophils % (auto) 0.7 %; Hematocrit (blood only) 32.7 % (42.0-52.0); Hemoglobin 11.1 g/dl (14.0-18.0); Immature Granulocytes # (auto) 0.05 K/uL (0.01-0.20); Immature Granulocytes % (auto) 0.5 %; Lymphocytes # (auto) 1.13 K/uL (1.20-3.40); Lymphocytes % (auto) 10.6 %; Mean Corpuscular Hemoglobin 28.9 pg (25.0-34.0); Mean Corpuscular Hgb Conc 33.9 g/dL (32.0-36.0); Mean Corpuscular Volume 85.2 fL (80.0-100.0); Mean Platelet Volume 8.2 fL (9.4-12.4); Monocytes # (auto) 0.81 K/uL (0.11-0.59); Monocytes % (auto) 7.6 %; Neutrophils # (auto) 8.57 K/uL (1.40-6.50); Neutrophils % (auto) 80.3 %; Platelet Count 457 K/uL (130-400); RDW Coefficient of Variation 18.1 % (11.5-14.5); RDW Standard Deviation 55.5 fL (36.4-46.3); Red Blood Count 3.84 M/uL (4.70-6.10); White Blood Count 10.66 K/ul (4.8-10.8)
[2023-02-24 05:24] LABS: BUN Creatinine Ratio 16.1 (10-20); Calcium 8.5 mg/dl (8.6-10.3); Creatinine Clr Calc Pharmacy 87.6 ml/min; Est GFR (African American) 94.1 ml/min; Est GFR (Non-African American) 81.2 ml/min; Potassium 3.9 mmol/L (3.5-5.1)
[2023-02-24] MEDS: LEVOTHYROXINE SODIUM 125 MCG TABLET PO SCH (05:31)
[2023-02-24] MEDS: DOXYCYCLINE HYCLATE 100 MG in DEXTROSE 5% MINI-B 100 ML IV SCH ×2 (05:32→17:17)
--- NOTE | 2023-02-24 07:27 | Pulmonary Consultation ---
Date of Consultation February 24, 2023 Assessment & Plan (1) Hemoptysis: (2) LAD (lymphadenopathy), mediastinal: (3) Multifocal pneumonia: (4) Anticoagulated: Plan IMPRESSION: 32-year-old male with complicated past medical history including ulcerative colitis DVTs who presents to this institution with findings of multifocal pneumonia and ongoing hemoptysis for the last 6 to 8 weeks. RECOMMENDATIONS: 1. Hemoptysis - Patient with described hemoptysis for the last 6 to 8 weeks. No increase in quantity over the last 24 to 48 hours appreciated. Patient on lifelong anticoagulation with apixaban secondary to recurrent DVTs. Patient undergo bronchoscopic evaluation for mediastinal lymphadenopathy and recurrent hemoptysis. 2. Mediastinal lymphadenopathy - Patient had been seen in the pulmonary clinic 2 days ago for the same. Initiation of extensive evaluation was started including blood work to assess for autoimmune versus infectious versus etc. He did have blood work obtained, however these results are likely going to take weeks for final results. Given his worsening symptoms of cough, associated fever, and hemoptysis, patient does warrant bronchoscopic evaluation. We did discuss delaying bronchoscopy until he is scheduled in the outpatient setting, however patient is concerned given his worsening symptoms and would rather have the procedure performed while inpatient. Since patient is greater than 48 hours out from apixaban, we will schedule the patient for bronchoscopy with EBUS to be performed today at 1330. Patient agreeable to procedure for evaluation. 3. Multifocal pneumonia - Patient with symptoms for 6 weeks. Agree with antibiotic coverage with new onset of fevers. We will hopefully be able to de- escalate with sputum culture results. 4. 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 Has been off the medication since Tuesday. Thank you for allowing us to participate in the care of this patient. We will continue to follow along during his hospitalization. Supervising Physician Co-Signing Physician Notes Patient seen and examined. EMR reviewed. Images were independently reviewed and outpatient clinical notes from pulmonary were extensively reviewed. Agree with assessment plan as noted. As the patient has been off of his anticoagulation for more than 48 hours, can proceed with bronchoscopy, BAL, transbronchial needle aspiration, and transbronchial biopsies to obtain a definitive diagnosis. Depending on the findings, the patient may be able to dismiss from the hospital today and follow- up in the outpatient setting with Dr. kimble. Discussed with Dr. Kimble and he will perform the procedure today at noon. History of Present Illness Reason for Consultation: multifocal PNA, hemoptysis Requesting Physician: Dr. Lutz Attending Physician: Filemon Lutz MD History of Present Illness Patient is a 32-year-old male with a significant past medical history of ulcerative colitis on infliximab, azathioprine, and hydrocortisone as well as a history of multiple recurrent DVTs currently on lifelong apixaban, and adrenal insufficiency on hydrocortisone therapy. Patient has had a cough with blood- tinged sputum for the past 6 to 8 weeks. Initially, he was placed on a course of Bactrim followed by azithromycin without resolve symptoms. He had a chest x- ray which had been unremarkable, and a follow-up CT which demonstrated mediastinal lymphadenopathy. He actually had seen outpatient pulmonary on 02/22 for evaluation of the hilar adenopathy. Extensive evaluation and labs were ordered. He did undergo laboratory assessment which are still pending. Unfortunately, after his appointment, the patient developed a fever and worsening cough. Patient reports that he coughs up approximately 10 to 25 mL of bloody sputum on a daily basis. Again, this has been ongoing for 6 to 8 weeks. No significant increase in this amount recently. Other than the fevers or chills, his symptoms of cough persist. He does report a history of what he describes as asthma which he relates to cough which is worse with changes in temperature as well as with exercise. He previously had used a rescue inhaler which was discontinued during his previous visit. He was written for Breo inhaler which she has not picked up at this point. He denies any rashes or skin lesions. No history of occupational exposures. 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 Of note, the patient did have an unintentional 10 pound weight loss in the last 6 weeks. No sweats. Allergies Allergy/AdvReac Type Severity Reaction Status Date / Time infliximab AdvReac Mild PLZ MIX Verified 02/18/23 10:17 REMICADE IN 500ML - PT DOESNT TOLERATE SMALLER VOL vedolizumab AdvReac Mild 600mg - Verified 02/18/23 10:17 must be in 500ml to tolerate Home Medications Medication Instructions Recorded Confirmed Type calcium citrate 315 mg-vitamin D3 2 tabs PO BIDM ##0 03/08/15 02/23/23 History 5 mcg (200 unit) tablet (Calcium Citrate + D) multivitamin,tx-minerals 1 tab PO QPM #0 tabs 03/08/15 02/23/23 History allopurinol 100 mg tablet 100 mg PO QPM #0 tabs 09/08/15 02/23/23 History infliximab 100 mg intravenous 20 mg IV q 4 wks #0 ea 11/12/20 02/23/23 History solution (Remicade) azathioprine 50 mg tablet 100 mg PO HS #0 tabs 04/30/21 02/23/23 History apixaban 5 mg tablet 5 mg PO BID ##0 02/17/23 02/23/23 History bupropion HCl 200 mg tablet,12 hr 200 mg PO BID 02/23/23 02/23/23 History sustained-release cholecalciferol (vitamin D3) 25 8,000 mcg PO HS 02/23/23 02/23/23 History mcg (1,000 unit) tablet (Vitamin D3) folic acid 1 mg tablet 1 mg PO QAM 02/23/23 02/23/23 History hydrocortisone 5 mg tablet See Rx Instructions .Route .COMPLEX 02/23/23 02/23/23 History levothyroxine 125 mcg tablet 125 mcg PO DAILYBB 02/23/23 02/23/23 History liothyronine 25 mcg tablet 25 mcg PO DAILYBB 02/23/23 02/23/23 History ondansetron 4 mg disintegrating 4 mg translingual Q8 PRN Nausea 02/23/23 02/23/23 History tablet testosterone cypionate 200 mg/mL 250 mg IM WK 02/23/23 02/23/23 History intramuscular oil Patient History Medical History Adrenal insufficiency Anxiety about health with concomitant depression Autoimmune hepatitis suspected seronegative autoimmune etiology, followed by [facility]. See pt portal msg 04/26/21 for historical details. Bleeding ulcer Cellulitis of right leg Chronic ulcer of lower extremity DVT (deep venous thrombosis) Enteropathic arthritis Erythema nodosum Osteopenia Pyoderma gangrenosum Septic arthritis (01/17/14) Thrombophlebitis Ulcerative colitis Ureteric stone Vitamin D deficiency Surgical History No history of previous surgery Family History Denies family history of Ovarian cancer Prostate cancer Myocardial infarction Breast cancer Colorectal cancer Social History Smoking Status: Unknown if ever smoked Second Hand Exposure: No; Hx Alcohol Use: No Hx Substance Use: No Preferred Language: Northern Irish Visual Impairment: No Limitations Hearing Ability: Normal Health Occupations Teacher Required: No Beliefs That Will Affect Care: None marital status: Single Current Living Situation: Family current occupational status: student Feels Safe at Home: Yes Safety Concerns: Feels Safe At This Time Childhood Exposure to Second-Hand Smoke: No Dental Care, Regularly: Yes Physical Activity Frequency: Daily Seatbelt Use: always Sunscreen Use: Yes Review of Systems Review of Systems: A complete 10 point review of systems was reviewed with the patient with pertinent positives and negatives as per history of present illness. All else were negative. Physical Exam Physical Exam: VITAL SIGNS - Vital signs and nursing notes were reviewed. GENERAL - 32-year-old male appearing his stated age who is in no acute distress. Communicates well with provider and answers questions appropriately. SKIN - Without rashes or lesions. NOSE - Midline and without cyanosis. MOUTH/OROPHARYNX - Without perioral cyanosis. NECK - Neck with FROM. LUNGS - Chest wall evaluation demonstrates normal chest wall A:P diameter. Auscultation reveals clear breath sounds without wheezes, rales, or rhonchi appreciated. CARDIAC - RRR with S1/S2. No murmur, rubs, or gallops appreciated. ABDOMEN - Abdominal inspection demonstrates a flat abdomen. BS normoactive all four quadrants. No tenderness, palpable masses, or ascites noted. EXTREMITIES - Nail clubbing not present. No peripheral cyanosis. No pretibial edema present. +3/5 radial palpated throughout. PSYCH - A&Ox3 and cooperates fully with examiner. Pt is very pleasant and interacts well with examiner. Results & Data Results & Data Vital Signs (Past 12 Hours) Vital Signs Temp Pulse Pulse Resp BP BP Pulse Ox 02/24/23 03:47 93 H 02/24/23 02:43 36.6 C 17 125/76 96 02/24/23 01:00 91 H 24 02/23/23 23:38 100 H 20 134/72 96 02/24/23 00:01 36.9 C 02/23/23 23:50 96 H 02/23/23 23:42 02/23/23 22:29 102 H 20 103/74 96 02/23/23 21:21 100 H 22 131/72 94 02/23/23 21:21 100 H 24 131/72 94 Pulse Ox O2 Del Method O2 Del Method 02/24/23 03:47 02/24/23 02:43 Room Air 02/24/23 01:00 02/23/23 23:38 02/24/23 00:01 02/23/23 23:50 02/23/23 23:42 96 Room Air 02/23/23 22:29 Room Air 02/23/23 21:21 Room Air 02/23/23 21:21 Room Air PG Care Time/CCT Total # of Minutes Spent Total Time Spent with Patient: Total time spent is greater than 50% in coordination of care (as documented) at patient's floor/unit and/or counseling patient: Coding Level of Care Code 07609 IN/OBS CONSULT LVL 4,60M Diagnoses Hemoptysis R04.2 LAD (lymphadenopathy), mediastinal R59.0 Multifocal pneumonia J18.9 Anticoagulated Z79.01
--- NOTE | 2023-02-24 08:53 | Hospitalist Progress Note ---
Date of Service February 24, 2023 Assessment & Plan (1) Multifocal pneumonia: (2) Ulcerative colitis: (3) Adrenal insufficiency: (4) Hyperbilirubinemia: (5) Autoimmune hepatitis: (6) Asthma: Admission and Anticipated Discharge Date Admission Date: February 23, 2023 Results & Data Results & Data Vital Signs (Past 12 Hours) Vital Signs Temp Pulse Pulse Resp BP BP Pulse Ox 02/24/23 03:47 93 H 02/24/23 02:43 97.9 F 17 125/76 96 02/24/23 01:00 91 H 24 02/23/23 23:38 100 H 20 134/72 96 02/24/23 00:01 98.4 F 02/23/23 23:50 96 H 02/23/23 23:42 02/23/23 22:29 102 H 20 103/74 96 02/23/23 21:21 100 H 22 131/72 94 02/23/23 21:21 100 H 24 131/72 94 Pulse Ox O2 Del Method O2 Del Method 02/24/23 03:47 02/24/23 02:43 Room Air 02/24/23 01:00 02/23/23 23:38 02/24/23 00:01 02/23/23 23:50 02/23/23 23:42 96 Room Air 02/23/23 22:29 Room Air 02/23/23 21:21 Room Air 02/23/23 21:21 Room Air PG Care Time/CCT Total # of Minutes Spent Total Time Spent with Patient: Total time spent is greater than 50% in coordination of care (as documented) at patient's floor/unit and/or counseling patient: Coding Diagnoses Multifocal pneumonia J18.9 Ulcerative colitis K51.90 Adrenal insufficiency E27.40 Hyperbilirubinemia E80.6 Autoimmune hepatitis K75.4 Asthma J45.909
--- NOTE | 2023-02-24 08:59 | Hospitalist Progress Note ---
Date of Service February 24, 2023 Assessment & Plan (1) Multifocal pneumonia: Plan: Patient with cough, fever, chills, hemoptysis as outpt (is on chronic anticoagulation). was treated as outpatient with Bactrim without improvement Patient with underlying immunocompromise on infliximab/azathioprine as treatment for ulcerative colitis Cefepime and Doxycycline on prophylactic Vanco p.o. daily while on broad antibiotics Eval by Pulmonary medicine, EBUS 02/24/23 specimens obtained, friable mucosa commented upon BC pending bronchoscopic fungal cultures and bacterial cultures pending Fungitell pending reference lab send out - Susana level pending reference lab send out Unremitting cough we will try guaifenesin and codeine, Phenergan, patient also has complaints of sore throat and was requesting stronger pain medicine (2) Ulcerative colitis: Plan: Infliximab/azathioprine temporarily held - No infusions due until next tuesday No signs of acute flare Depression/anxiety/PTSD With stress around his illness which has contributed to IBD flares in the past Follows with [facility] psychologist Dr. Burris Buproprion 200mg PO BID working well for him. (3) Adrenal insufficiency: Plan: Hypopituitarism Home dosing hydrocortisone 15 mg a.m., 5 mg lunchtime Received 50 mg hydrocortisone while in ER We will continue stress dosing 30 mg a.m./10 mg p.m. - Testosterone IM on Tuesdays. Took 02/22. Patient feels in the past the doses Solu-Medrol did cause his cough to improve dramatically therefore we will give 1 dose of 50 mg Solu-Medrol in the afternoon of 02/24/23 (4) Autoimmune hepatitis: Plan: Follows w/ [facility]. Dr. Sheppard., hx of hyperbilirubinemia Continue steroids as noted Trend LFTs daily T. bili, transaminases mildly elevated near prior baseline range on admission Plan DVT prophylaxis: SCDs, apixaban held for hemoptysis and for pulm eval Recurrent DVT 2014 and 2015. Suspected w/ chronic inflammatory state CODE STATUS: Full code Admission and Anticipated Discharge Date Admission Date: February 23, 2023 Subjective pt was seen upon return from Bronchoscopy friable mucosa, easily bleeding but not with active bleeding cultures, for bacteria and fungus and biopsy sent Physical Exam Physical Exam: pt is awake and alert unremitting cough, non productive, did not expectorate blood lungs are clear in all madden maybe some coarse breath sounds Results & Data Results & Data Vital Signs (Past 12 Hours) Vital Signs Temp Pulse Pulse Resp BP BP Pulse Ox 02/24/23 03:47 93 H 02/24/23 02:43 97.9 F 17 125/76 96 02/24/23 01:00 91 H 24 02/23/23 23:38 100 H 20 134/72 96 02/24/23 00:01 98.4 F 02/23/23 23:50 96 H 02/23/23 23:42 02/23/23 22:29 102 H 20 103/74 96 02/23/23 21:21 100 H 22 131/72 94 02/23/23 21:21 100 H 24 131/72 94 Pulse Ox O2 Del Method O2 Del Method 02/24/23 03:47 02/24/23 02:43 Room Air 02/24/23 01:00 02/23/23 23:38 02/24/23 00:01 02/23/23 23:50 02/23/23 23:42 96 Room Air 02/23/23 22:29 Room Air 02/23/23 21:21 Room Air 02/23/23 21:21 Room Air Laboratory Results Reviewed CBC Reviewed chemistry PG Care Time/CCT Total # of Minutes Spent Total Time Spent with Patient: Total time spent is greater than 50% in coordination of care (as documented) at patient's floor/unit and/or counseling patient: Coding Level of Care Code 15463 SUB INP/OBS CARE 3/50MIN Diagnoses Multifocal pneumonia J18.9 Ulcerative colitis K51.90 Adrenal insufficiency E27.40 Autoimmune hepatitis K75.4
[2023-02-24] MEDS: CALCIUM 600MG + VIT D 400 IU TAB PO SCH ×2 (09:04→17:26)
[2023-02-24] MEDS: HYDROCORTISONE 10 MG TAB PO SCH (09:08)
[2023-02-24] MEDS ORDERED: MIDAZOLAM HCL 5 MG/ML 1 ML VIAL ONE ×3 (11:43→12:28)
[2023-02-24] MEDS ORDERED: fentaNYL citrate PF 100 MCG/2 ML VIAL ONE ×2 (11:44→12:23)
--- NOTE | 2023-02-24 12:02 | Pre Anesthesia Assessment ---
Date of Service February 24, 2023 Pre Sedation Assessment Vital Signs Temp Pulse Pulse Pulse Resp BP BP 02/24/23 11:59 108 H 18 132/92 02/24/23 11:13 36.8 C 101 H 16 115/71 02/24/23 08:00 36.4 C L 99 H 16 118/77 02/24/23 08:00 02/24/23 09:00 92 H 02/24/23 03:47 93 H 02/24/23 02:43 36.6 C 17 125/76 02/24/23 01:00 91 H 24 02/23/23 23:38 100 H 20 134/72 02/24/23 00:01 36.9 C 02/23/23 23:50 96 H 02/23/23 23:42 02/23/23 22:29 102 H 20 103/74 02/23/23 21:21 100 H 22 131/72 02/23/23 21:21 100 H 24 131/72 02/23/23 18:05 99 H 26 H 02/23/23 18:04 102 H 24 117/86 02/23/23 15:10 109 H 31 H 02/23/23 16:10 36.8 C 105 H 20 139/93 02/23/23 14:37 120 H 02/23/23 13:53 36.8 C 177 H 18 116/75 Pulse Ox Pulse Ox O2 Del Method O2 Del Method 02/24/23 11:59 99 Oxymask 02/24/23 11:13 94 Room Air 02/24/23 08:00 95 02/24/23 08:00 Room Air 02/24/23 09:00 02/24/23 03:47 02/24/23 02:43 96 Room Air 02/24/23 01:00 02/23/23 23:38 96 02/24/23 00:01 02/23/23 23:50 02/23/23 23:42 96 Room Air 02/23/23 22:29 96 Room Air 02/23/23 21:21 94 Room Air 02/23/23 21:21 94 Room Air 02/23/23 18:05 02/23/23 18:04 96 Room Air 02/23/23 15:10 02/23/23 16:10 97 Room Air 02/23/23 14:37 02/23/23 13:53 96 Room Air Pre-Sedation Airway Assessment Smoking Status: Unknown if ever smoked Hx Sleep Apnea: No Short, Thick Neck: No Thyromental Distance: > or= 3.5 Finger Breadths Oral Cavity: + WNL Mallampati Class: III ASA: ASA3 NPO Status Date of Last Intake of Fluids: 02/23/23 Date of Last Intake of Solid Food: 02/23/23 Procedure Planning Contraindications for Sedation: none Current Medications Reviewed: Yes Notes The planned sedation has been discussed with the patient. Informed Consent was obtained. I have identified the patient, determined the appropriateness of sedation and have assessed the patient immediately prior to the procedure. All medicine(s) and interventions are by my order.
--- NOTE | 2023-02-24 12:51 | Post Anesthesia Assessment ---
Date of Service February 24, 2023 Post Sedation Assessment Vital Signs Temp Pulse Pulse Pulse Resp BP BP 02/24/23 12:30 130 H 18 156/90 H 02/24/23 12:30 134 H 20 02/24/23 12:25 132 H 18 167/109 H 02/24/23 12:25 132 H 20 02/24/23 12:20 131 H 18 138/93 02/24/23 12:20 131 H 20 02/24/23 12:35 123 H 18 140/80 02/24/23 12:15 135 H 18 135/85 02/24/23 12:15 135 H 20 02/24/23 11:59 108 H 18 132/92 02/24/23 11:13 36.8 C 101 H 16 115/71 02/24/23 08:00 36.4 C L 99 H 16 118/77 02/24/23 08:00 02/24/23 09:00 92 H 02/24/23 03:47 93 H 02/24/23 02:43 36.6 C 17 125/76 02/24/23 01:00 91 H 24 02/23/23 23:38 100 H 20 134/72 02/24/23 00:01 36.9 C 02/23/23 23:50 96 H 02/23/23 23:42 02/23/23 22:29 102 H 20 103/74 02/23/23 21:21 100 H 22 131/72 02/23/23 21:21 100 H 24 131/72 02/23/23 18:05 99 H 26 H 02/23/23 18:04 102 H 24 117/86 02/23/23 15:10 109 H 31 H 02/23/23 16:10 36.8 C 105 H 20 139/93 02/23/23 14:37 120 H 02/23/23 13:53 36.8 C 177 H 18 116/75 Pulse Ox Pulse Ox O2 Del Method O2 Del Method O2 Flow Rate 02/24/23 12:30 96 Oxymask 02/24/23 12:30 94 Oxymask 8 02/24/23 12:25 96 Oxymask 02/24/23 12:25 96 Oxymask 8 02/24/23 12:20 96 Oxymask 02/24/23 12:20 96 Oxymask 8 02/24/23 12:35 94 Oxymask 5 02/24/23 12:15 96 Oxymask 02/24/23 12:15 96 Oxymask 8 02/24/23 11:59 99 Oxymask 02/24/23 11:13 94 Room Air 02/24/23 08:00 95 02/24/23 08:00 Room Air 02/24/23 09:00 02/24/23 03:47 02/24/23 02:43 96 Room Air 02/24/23 01:00 02/23/23 23:38 96 02/24/23 00:01 02/23/23 23:50 02/23/23 23:42 96 Room Air 02/23/23 22:29 96 Room Air 02/23/23 21:21 94 Room Air 02/23/23 21:21 94 Room Air 02/23/23 18:05 02/23/23 18:04 96 Room Air 02/23/23 15:10 02/23/23 16:10 97 Room Air 02/23/23 14:37 02/23/23 13:53 96 Room Air Recovery Score Activity: Moves 4 extremities Respiration: Deep Breath/Cough Circulation: +/-20% PreAnes Value Consciousness: Arouseable (by name) Oxygen Saturation: O2 needed for >90% Post Anesthesia Score: 8 Discharge Sedation Level of Care: Fast Track Phase II Post Sedation Plan On clinical assessment, the patient appears to have tolerated the sedation without complications. Patient is recovering as anticipated. Patient will continue to be monitored by nursing and may be discharged when sedation discharge criteria are met per below protocol. Upon Completions of procedure up to 15 minutes continue every 5 minute vital signs and the P.A.R. score; then discharge to a Phase I or Fast Track to Phase II per the following guidelines: * Discharge Patient to appropriate Phase II area if PAR is 8 or greater or return to pre- procedure baseline. The post - procedure orders will be as directed. * If PAR score is less than 8 or not return to pre-procedure baseline then patient will follow Phase I monitoring till PAR is reached for Phase II. The Phase I may be done in procedure room or may call to secure a Phase I area. * If naloxone or flumazenil are used for reversal, hold in Phase I for continued monitoring from when last reversal dose was given for a minimum of 60 minutes or longer pending the nurse and/or physician discretion of patient condition before discharge to Phase II. Please call the Sedation Physician to re-evaluate and complete post-note for discharge to Phase II area. Do NOT discharge from procedure sedation or Phase 1 until post- sedation evaluation note is complete by procedure /sedation MD Sedation Discharge Instructions to be given to the patient at discharge to home.
--- NOTE | 2023-02-24 13:00 | Procedure Note ---
Procedure Note: Bronchoscopy Procedure PREOPERATIVE DIAGNOSIS: Mediastinal lymphadenopathy POSTOPERATIVE DIAGNOSIS: Mediastinal lymphadenopathy PROCEDURE PERFORMED: EBUS along with flexible fiberoptic bronchoscopy with BAL COMPLICATIONS: None. INDICATION: Rule out sarcoid versus infection PROCEDURE: After obtaining an informed consent, the patient was brought to the Bronchoscopy Suite. The patient had appropriate oxygen, blood pressure, heart rate, and respiratory rate monitoring applied and monitored continuously throughout the procedure. Supplemental oxygen via nasal cannula as per nursing records was applied to the nasopharynx with adequate saturations achieved. Topical anesthesia with nebulized 1% lidocaine was achieved. Subsequent to this, the patient was premedicated with 10 mg of midazolam and 225 mcg of fentanyl. Sedation start 12:10 PM, procedure and 12:32 PM Upper Airway: The oropharynx and larynx were well visualized and showed mild erythema, otherwise negative. There was normal vocal cord motion without masses or lesions. Additional topical anesthesia with 1% lidocaine was applied to the trachea and marco. The trachea appeared normal.The bronchoscope was then advanced through the marco, which was widened. Secondary marco on the right as well as left was also widened. The scope was then advanced into the right main stem and each segment, subsegement in the right upper lobe, right middle lobe and right lower lobe were visualized. There was minimal amount of yellow secretion which was suctioned out. There were no other findings including evidence of mass, anatomic distortions, or hemorrhage. Patient had very friable mucosa which bled easily even on touching the scope The bronchoscope was subsequently withdrawn and advanced into the left mainstem. Again, each segment and subsegment was well visualized. Small nodule was appreciated at the uptake of left upper near the lingula. No no other specific masses or other lesions were identified throughout the tracheobronchial tree on the left. There was minimal amount of clear secretion which was suctioned out. The bronchoscope was then wedged in the right middle lobe and bronchoalveolar lavage samples were obtained. 140 ml of saline was instilled and 40 ml of fluid was aspirated back.The bronchoscope was withdrawn and the area was suctioned clear. Flexible bronchoscope was withdrawn and EBUS was introduced Station 7: 3 passes with multiple sweeps EBUS was withdrawn and flexible bronchoscope was introduced Minimal bleeding was appreciated which was suctioned out. No active bleeding. The bronchoscope was then withdrawn to the mainstem. The area was suctioned clear. The bronchoscope was then withdrawn. The patient tolerated the procedure well without evidence of desaturation or complications. Bronchoalveolar lavage samples were sent for cell count, Gram stain and bacterial culture, AFB culture and smear, fungal culture and smear, cryptococcus, flow cytometry, histoplasma, coccidioidal and cytology. Recommendations: Follow-up micro, cytology and pathology Follow-up chest x-ray Case was discussed with patient's mom in the waiting area. All questions were answered in depth. Please note the above document was generated using voice recognition software. It may contain grammatical, syntax or spelling errors.Any formal questions or concerns about the content, text or information contained within the body of this dictation should be directly addressed to the provider for clarification. [facility] [place] Procedure Codes (Charges) Pulmonary/Thoracic Procedure 1: Pulmonary and Thoracic: 95293 Bronchoscopy, w/EBUS 1 or 2 mediastinal Procedure 2: Pulmonary and Thoracic: 40214 Dx bronchoscopy/BAL Sedation/Anesthesia Procedure 1: Sedation/Anesthesia: 41989 Mod Sedation by the same physician;Init15 Min Child Age 5 & Up Procedure 2: Sedation/Anesthesia: 99914 Mod Sedation by the same physician; Ea [id number] Minutes
[2023-02-24] MEDS ORDERED: HYDROCORTISONE 10 MG TAB PO SCH (14:00)
--- NOTE | 2023-02-24 14:08 | XRay Report ---
XR chest 1V portable HISTORY: status post bronchoscopy. COMPARISON: Chest 02/23/2023. FINDINGS: No pneumothorax. No pleural effusions. The cardiac silhouette is top normal in size. Patchy perihilar airspace opacities and interstitial thickening has slightly progressed. IMPRESSION: 1. No pneumothorax. 2. Patchy perihilar airspace opacities and interstitial thickening has slightly progressed. ACT 112: Negative or not required by law. Electronically signed by: Isaias Bolivar M.D. 02/24/2023 2:06 PM
[2023-02-24] MEDS ORDERED: PROMETHAZINE HCL 12.5 MG in SODIUM CHLORIDE 0.9% 50 ML IV PRN (14:29)
[2023-02-24] MEDS ORDERED: methylPREDNISolone 50 MG in SYRINGE 0 ML IV ONE (14:45)
[2023-02-24] MEDS: FOLIC ACID 1 MG TAB PO SCH (14:59)
[2023-02-24 16:22] LABS: Lymphocyte Body Fluid Man 17 %; Neutrophil Body Fluid Man 43 %
[2023-02-24 16:23] LABS: Eosinophil Body Fluid Man 1 %; Fluid Mono/Macrophage 39 %
[2023-02-24] MEDS: oxyCODONE HCL IR 5 MG TAB (IMMEDIATE RELEASE) PO PRN (17:16)
[2023-02-24] MEDS ORDERED: INFLUENZA VIRUS QUADRIVALENT VACCINE (IIV4) 0.5 ML SYR IM ONE (18:06)
[2023-02-25] MEDS: LEVOTHYROXINE SODIUM 125 MCG TABLET PO SCH (06:17)
[2023-02-25] MEDS: DOXYCYCLINE HYCLATE 100 MG in DEXTROSE 5% MINI-B 100 ML IV SCH (06:17)
[2023-02-25] MEDS: oxyCODONE HCL IR 5 MG TAB (IMMEDIATE RELEASE) PO PRN (06:19)
[2023-02-25 06:22] LABS: Hematocrit (blood only) 34.5 % (42.0-52.0); Hemoglobin 11.4 g/dl (14.0-18.0); Immature Granulocytes # (auto) 0.04 K/uL (0.01-0.20); Immature Granulocytes % (auto) 0.5 %; Lymphocytes # (auto) 0.41 K/uL (1.20-3.40); Mean Corpuscular Hemoglobin 28.8 pg (25.0-34.0); Mean Corpuscular Volume 87.1 fL (80.0-100.0); Mean Platelet Volume 8.3 fL (9.4-12.4); Monocytes # (auto) 0.43 K/uL (0.11-0.59); Monocytes % (auto) 5.3 %; Neutrophils # (auto) 7.24 K/uL (1.40-6.50); Neutrophils % (auto) 89.2 %; Platelet Count 488 K/uL (130-400); RDW Coefficient of Variation 18.1 % (11.5-14.5); RDW Standard Deviation 57.3 fL (36.4-46.3); Red Blood Count 3.96 M/uL (4.70-6.10); White Blood Count 8.12 K/ul (4.8-10.8)
[2023-02-25 06:38] LABS: BUN Creatinine Ratio 18.3 (10-20); Calcium 8.9 mg/dl (8.6-10.3); Creatinine Clr Calc Pharmacy 99.4 ml/min; Est GFR (African American) 109.6 ml/min; Est GFR (Non-African American) 94.6 ml/min; Potassium 4.5 mmol/L (3.5-5.1)
--- NOTE | 2023-02-25 08:40 | XRay Report ---
XR chest 1V portable CLINICAL HISTORY: f/u TECHNIQUE: Single frontal radiograph of the chest was obtained. Comparison: Comparison is made to chest radiograph 02/24/2023 FINDINGS: No lines and tubes are seen. The cardiomediastinal silhouette is normal. Interval improvement in prev iously noted pulmonary opacities. No evidence of pleural effusion or pneumothorax. IMPRESSION: Interval improvement in previously noted opacities likely represents improving pulmonary edema. ACT 112: Negative or not required by law. Electronically signed by: Neto Ruelas M.D. 02/25/2023 8:38 AM
[2023-02-25] MEDS ORDERED: LOPERAMIDE HCL 2 MG CAP PO SCH (09:00)
[2023-02-25] MEDS ORDERED: APIXABAN 5 MG TABLET PO SCH (09:00)
[2023-02-25] MEDS: CEFEPIME 2,000 MG in SYRINGE 0 ML IV SCH (09:23)
[2023-02-25] MEDS: buPROPion SR 100 MG TABCR PO SCH (09:24)
[2023-02-25] MEDS: CALCIUM 600MG + VIT D 400 IU TAB PO SCH (09:25)
[2023-02-25] MEDS: VANCOMYCIN HCL 125 MG/2.5ML SOLN PO SCH (09:25)
[2023-02-25] MEDS: HYDROCORTISONE 10 MG TAB PO SCH (09:26)
[2023-02-25] MEDS: FOLIC ACID 1 MG TAB PO SCH (09:26)
[2023-02-25] MEDS: CHERRY SYRUP 5 ML UDP PO SCH (09:27)
--- NOTE | 2023-02-25 11:06 | Pulmonology Progress Note ---
Date of Service February 25, 2023 Assessment & Plan (1) Hemoptysis: (2) LAD (lymphadenopathy), mediastinal: (3) Multifocal pneumonia: (4) Anticoagulated: Plan IMPRESSION: 32-year-old male with complicated past medical history including ulcerative colitis DVTs who presents to this institution with findings of multifocal pneumonia and ongoing hemoptysis for the last 6 to 8 weeks. He underwent bronchoscopy yesterday. He hemoptysis appears to have resolved. Bronchoscopy specimens pending RECOMMENDATIONS: 1. Hemoptysis -resolved. Unclear if the patient requires long-term anticoagulation or not. Certainly stopping his anticoagulation if possible would likely result in resolution of his hemoptysis. It has been scant and appears to have resolved currently 2. Mediastinal lymphadenopathy -EBUS specimen showed only blood. Would await final pathology from the patient's other specimens. Pattern is concerning for sarcoid and I think at this point time with specimens having been obtained placing the patient on prednisone 40 mg a day and tapering by 10 mg every week until he follows up with pulmonary with a repeat chest x-ray in 2 to 3 weeks would be reasonable. 3. Multifocal pneumonia -bronchoscopy did not demonstrate significant findings concerning for infection and I think antibiotics can be discontinued. 4. 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 Has been off the medication since Tuesday morning. The patient appears stable to consider dismissal from the hospital. Pulmonary will sign off. Feel free to contact us with questions or concerns Admission and Anticipated Discharge Date Admission Date: February 23, 2023 Subjective Patient seen and examined. EMR reviewed. Discussed with Dr. Jasso yesterday. Patient has not experienced additional hemoptysis. He is occasionally coughing. He is not wheezing. He is not experiencing any shortness of breath. No fevers chills night sweats or other constitutional symptoms. He states he would like to avoid antibiotics due to his ulcerative colitis issues if possible. Review of Systems Review of Systems: All systems reviewed & are unremarkable except as noted in Subjective Physical Exam Constitutional: WD/WN, vitals as above Neck: trachea midline, no thyromegaly Respiratory: normal respiratory effort, lungs clear to auscultation Cardiovascular: RRR, no murmur, no edema Gastrointestinal (Abdomen): normal bowel sounds, soft, nontender, no hepatosplenomegaly Musculoskeletal: Extremities: extremities normal to inspection Skin: no rashes, warm and dry Neurologic: Nonfocal exam Lymphatic: no cervical lymphadenopathy Results & Data Results & Data Vital Signs (Past 12 Hours) Vital Signs Temp Pulse Pulse Resp BP Pulse Ox O2 Del Method 02/25/23 07:43 36.8 C 93 H 16 129/82 96 Room Air 02/25/23 03:43 36.7 C 90 18 110/66 95 Room Air 02/24/23 23:32 97 H Laboratory Results Bronchoscopy results: Fungal smear negative, culture pending AFB smear pending, culture pending Gram stain with white blood cells but no organisms Pathology pending Station 7 lymph node was nondiagnostic showing only blood BAL differential showed 43% neutrophils, 70% lymphocytes, 1% eosinophils, and 39% monocytic cells. PG Care Time/CCT Total # of Minutes Spent Total Time Spent with Patient: Total time spent is greater than 50% in coordination of care (as documented) at patient's floor/unit and/or counseling patient: Coding Level of Care Code 16205 SUB INP/OBS CARE 2/35MIN Diagnoses Hemoptysis R04.2 LAD (lymphadenopathy), mediastinal R59.0 Multifocal pneumonia J18.9 Anticoagulated Z79.01
[2023-02-25] MEDS ORDERED: predniSONE 20 MG TAB PO SCH (11:15)
[2023-02-25] MEDS ORDERED: predniSONE 20 MG TAB PO STA (12:44)
--- NOTE | 2023-02-25 17:57 | Discharge Summary ---
Date of Service February 25, 2023 Admission HPI Per Admitting Provider Laci is a 32-year-old male with a past medical history of ulcerative colitis, autoimmune hepatitis, DVT, and asthma who presents with hemoptysis and imaging consistent with multifocal pneumonia. No evidence of PE is noted on CTA. He is recommended for admission for treatment of multifocal pneumonia with underlying immune compromise. Hemoptysis for 4-6 weeks, intermittent cough. Changed yesterday when he d eveloped fever, chills, and night sweats. No stomach pain. Abdomen has been sore before with coughing. Denies UC flare. Denies bloody bowel movements and abd pain. Has had 'a bit of a cough' chronically in the past, noticed in terra past has improved with solumedrol shot in the past with UC infusion. Endorses shortness of breath wosrening over the last few weeks different from this, and seems worse today and yesterday. Denies chest pain or chest pressure Appetite diminished, so eating less and +weight loss 5-10 pounds over last few weeks due to fatigue and poor appetite. No vomiting. Endorses hx of AI due to being on predisone for several years in the past. Hydrocortisone normally 15/5. has not stress dosed this week. 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 Medical History: Reviewed Medications: Reviewed Surgical History: Reviewed Family history: Reviewed Allergies: Reviewed Social History: REviewed Code Status: Full Principal Diagnosis inflammatory lung disease ruling out infectious etiology Discharge Exam Pts cough has reduced with steroids and antitussives Discharge Data Allergies Allergy/AdvReac Type Severity Reaction Status Date / Time infliximab AdvReac Mild PLZ MIX Verified 02/18/23 10:17 REMICADE IN 500ML - PT DOESNT TOLERATE SMALLER VOL vedolizumab AdvReac Mild 600mg - Verified 02/18/23 10:17 must be in 500ml to tolerate Consultations 02/23/23 16:20 ED Decision to Admit Stat 02/23/23 23:24 Consult Pulmonology Routine Procedures Performed Operation Date: 02/24/23 12:00 Actual Procedures p Endobronchial Ultrasound (EBUS) - [facility] Ordered Studies 02/23/23 14:18 CT angio chest PE protocol Stat Hospital Course (1) Multifocal pneumonia: Patient with cough, fever, chills, hemoptysis as outpt (is on chronic anticoagulation). was treated as outpatient with Bactrim without improvement Patient with underlying immunocompromise on infliximab/azathioprine as treatment for ulcerative colitis Cefepime and Doxycycline-> will be home on 5 additional days of antibiotics did test C diff gene negative Eval by Pulmonary medicine, EBUS 02/24/23 specimens obtained, friable mucosa commented upon. biopsy path is non diagnostic, BAL results pending at CT BC pending bronchoscopic fungal cultures and bacterial cultures pending Fungitell pending reference lab send out - Susana level pending reference lab send out recommended to pt a 4 week taper of prednisone, pt is requesting we follow this plan, will RX on dc in addition to his typical homeopathic hydrocortisone Apixaban for VTE prophylaxis restarted at day before discharge without worsening or recurrence of hemoptysis (2) Ulcerative colitis: Infliximab/azathioprine temporarily held - Depression/anxiety/PTSD With stress around his illness which has contributed to IBD flares in the past Follows with [facility] Cro[facility] psychologist Dr. Burris Buproprion 200mg PO BID working well for him. (3) Adrenal insufficiency: Hypopituitarism Home dosing hydrocortisone 15 mg a.m., 5 mg lunchtime Received 50 mg hydrocortisone while in ER then stress dosing while inpt will return to home dosing at id - Testosterone IM on Tuesdays. Took 02/22. (4) Autoimmune hepatitis: Follows w/ [facility]. Dr. Sheppard., hx of hyperbilirubinemia Continue steroids as noted Trend LFTs daily T. bili, transaminases mildly elevated near prior baseline range on admission Plan DVT apixaban for Recurrent DVT 2014 and 2015. Suspected w/ chronic inflammatory state CODE STATUS: Full code Total Time Total Time Spent Total Time Spent (In Minutes): It required greater than 30 minutes to prepare this patient for discharge Discharge Plan Discharge Items Patient Disposition: Home - Self-Care Reason For Visit: PNA, HEMOPTYSIS Discharge Diagnosis: Hemoptysis-coughing up blood pneumonitis-inflamation in lung Activity: Resume your previous activity Non-emergency contact: Primary Care Provider and Specialist Call non-emergency contact if: your symptoms worsen Follow-up/Referrals: Darren Flowers MD [Primary Care Provider] - 03/01/23 8:30 am (APPOINTMENT WITH RAMA STOVALL PA-C) Nicole Jasso MD, FCCP [Physician] - 03/16/23 1:00 pm (Appointment with Magnus Avendano ) Diet: Regular Addtl Attending Provider Instructions: please take your doxycycline 100mg twice a day please take your prednisone tapering dose, reduce dose by 10 mg every week unless otherwise instructed by a provider always return if worsened coughing up blood, fever or shortness of breath Pending Studies at Discharge: No Stand-Alone Forms: My [facility] [employer], Smoking Cessation Medications and DC Order Prescriptions: New doxycycline hyclate 100 mg capsule 100 mg PO BID 5 Days Qty: 10 0RF prednisone 10 mg tablet 10 mg PO DIRECTED Qty: 70 0RF Rx Instructions: 4 daily x 1 wk->3 daily x 1 wk->2 daily x1wk->1 daily codeine-guaifenesin [Guaifenesin AC] 10-100 mg/5 mL liquid 10 ml PO Q4H PRN (Reason: cough) Qty: 473 0RF Continued multivitamin,tx-minerals Tablet 1 tab PO QPM Qty: 0 calcium citrate-vitamin D3 [Calcium Citrate + D] 315-200 mg-unit Tablet 2 tabs PO BIDM Qty: 0 allopurinol 100 mg Tablet 100 mg PO QPM Qty: 0 Remicade 100 mg recon soln 20 mg IV q 4 wks Qty: 0 apixaban 5 mg tablet 5 mg PO BID Qty: 0 azathioprine 50 mg tablet 100 mg PO HS Qty: 0 liothyronine 25 mcg tablet 25 mcg PO DAILYBB testosterone cypionate 200 mg/mL oil 250 mg IM WK Rx Instructions: take on tuesday cholecalciferol (vitamin D3) [Vitamin D3] 25 mcg (1,000 unit) Tablet 8,000 mcg PO HS hydrocortisone 5 mg tablet See Rx Instructions .ROUTE .COMPLEX Rx Instructions: take 15mg orally in the morning;and take 5mg at lunchtime levothyroxine 125 mcg tablet 125 mcg PO DAILYBB folic acid 1 mg Tablet 1 mg PO QAM bupropion HCl 200 mg tablet sustained-release 12 hr 200 mg PO BID ondansetron 4 mg tablet,disintegrating 4 mg translingual Q8 PRN (Reason: Nausea) Discharge Orders: Discharge Order (Routine); Ordered 02/25/23 Ordered By: Kuldip Pérez/Other Patient Handouts: ED Hemoptysis Admission Data Admit Date/Time: 02/23/23 20:05 Attending Provider: Kuldip Ward Admit Provider: Filemon Lutz Primary Care Provider: Darren Flowers Other Providers: Filemon Lutz ; Didier Ruff Other Interventions: Discharge Summary Assessment (RN) Last Done: 02/25/23 13:42 Coding Level of Care Code 65801 INP/OBS DISCH >30 MIN Diagnoses Multifocal pneumonia J18.9 Ulcerative colitis K51.90 Adrenal insufficiency E27.40 Autoimmune hepatitis K75.4
--- NOTE | 2023-02-25 22:00 | Electrocardiogram Report ---
Test Reason : Blood Pressure : / mmHG Vent. Rate : 119 BPM Atrial Rate : 119 BPM P-R Int : 118 ms QRS Dur : 078 ms QT Int : 300 ms P-R-T Axes : 061 057 064 degrees QTc Int : 422 ms Sinus tachycardia No previous ECGs available Confirmed by Melecio Pritchett ([id number]) on 02/25/2023 9:59:43 PM Referred By: Confirmed By:Melecio Pritchett
== END 2023-02-25 14:31 | disposition home or self-care (01) | DRG 194 ==
LOC: ED 13:48 → EDINP 20:05 → SUATTDRO 20:05 → 2W 23:24

== ENCOUNTER 2023-05-02 01:11 | Inpatient (IN) ==
--- NOTE | 2023-05-02 01:26 | Emergency Department Note ---
Impression & Plan Chest pain ED Provider Note HISTORY OF PRESENT ILLNESS: Patient is a 32-year-old male presenting with substernal chest pain. Patient reports pain has been constant in onset for the last 10 days. He states the pain has been getting progressively worse in that timeframe. Reports feeling slightly short of breath with the pain. States the pain is worse when he is lying flat. He states the pain radiates straight into his back and into his right flank. He is on Eliquis. He has a history of a mediastinal mass that he was admitted to [facility] for a few weeks ago. He states that the biopsies are still in process and his workup is still in process, including a PET scan which is ordered. He reports he has had a nonproductive cough in the last 2 days. Denies any fevers. Denies any nausea or vomiting. ROS: as above PHYSICAL EXAM: Constitutional: Patient appears in no acute distress. HENT: Head: Normocephalic and atraumatic. Eyes: EOMI, PERRL Mouth/Throat: Mucous membranes moist. Neck: Trachea midline. Neck supple. Cardiovascular: Tachycardic with regular rhythm. No murmurs, rubs or gallops. Intact distal pulses. Pulmonary/Chest: No respiratory distress. Breath sounds clear and equal bilaterally. No wheezes or rales. Abdominal: Abdomen soft, no tenderness, rebound or guarding. Musculoskeletal: No edema, tenderness or deformity noted. Skin: Warm and dry. No rash, erythema, pallor or cyanosis Psychiatric: Appropriate mood and affect for situation. Neurological: Alert and keenly responsive. CN II-XII grossly intact, moving all extremities equally and fully. MDM: - Vitals signs showed tachycardia. - History obtained via patient. Patient presents with chest pain. Patient reports he has been having constant substernal chest pain for the last 10 days that has been getting progressively worse. He reports he feels short of breath with the pain. Pain and shortness of breath are worse when lying flat. Pain radiates into his back and into his right flank. He is on Eliquis. - Chronic conditions affecting care: DVT; ulcerative colitis - Differential diagnoses include, but are not limited to: Acute coronary syndrome; pulmonary embolism; dissection; tension pneumothorax; esophageal rupture; pneumonia - Order placed for continuous cardiac monitoring. At this time, monitor showed rate of 85 bpm with normal sinus rhythm, per my interpretation. - External medical records reviewed. Pulmonary clinic visit note dated 04/29/2023 from [facility] was reviewed, as patient brought a copy of it. He was admitted to [facility] from 03/28 to 04/09 for several months of cough/hemoptysis, chest discomfort and fevers and was found to have bilateral hilar/mediastinal lymphadenopathy and diffuse perilymphatic nodules. He had robotic partial resection of the mediastinal mass in 04/08/2023 with inconclusive pathology results. Patient had a bronchoscopy performed on 03/29 which showed erythematous vocal cords, 2 to 3 mm vascular endobronchial nodules in the right mainstem bronchus and significant vascularization of the hilar lymph node. 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 He is scheduled for a PET scan on 03/07/2023. - EKG reviewed by myself showed normal sinus rhythm. Rate 94 bpm. QTc 432. No acute ischemic changes. - Laboratory workup interpreted by myself showed normal WBC; stable electrolytes; normal troponin - CXR negative for pneumonia, per my interpretation - Viral biofire negative - CT chest with contrast showed central groundglass opacities within the bilateral lower lobes concerning for fluid overload. - Patient initially given 50 mcg IV fentanyl for symptomatic management. On reassessment, he is still complaining of significant pain and nausea. He was given 4 mg of IV Zofran and 4 mg of IV morphine. On reassessment, he is still very uncomfortable. Will admit to hospital service for further evaluation. - Discussion was had with chronic care nurse about patient's case and need for admission - Hospitalist consulted for admission - Patient admitted to [facility] for further evaluation and management. 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 See pt portal msg 04/26/21 for historical details. Bleeding ulcer Cellulitis of right leg Chronic ulcer of lower extremity DVT (deep venous thrombosis) Enteropathic arthritis Erythema nodosum Osteopenia Pyoderma gangrenosum Septic arthritis (01/17/14) Thrombophlebitis Ulcerative colitis Ureteric stone Vitamin D deficiency Surgical History No history of previous surgery Family History Denies family history of Ovarian cancer Prostate cancer Myocardial infarction Breast cancer Colorectal cancer Social History Smoking Status: Never smoker Second Hand Exposure: No; Hx Alcohol Use: No Hx Substance Use: No Preferred Language: Thai Communication Ability: Effective Visual Impairment: No Limitations Hearing Ability: Normal Clinical Informatics Director Required: No Beliefs That Will Affect Care: None marital status: Single Current Living Situation: Family current occupational status: student Feels Safe at Home: Yes Childhood Exposure to Second-Hand Smoke: No Dental Care, Regularly: Yes Physical Activity Frequency: Daily Seatbelt Use: always Sunscreen Use: Yes Assistive Devices: None Allergies Allergies Allergy/AdvReac Type Severity Reaction Status Date / Time infliximab AdvReac Mild PLZ MIX Verified 05/02/23 01:42 REMICADE IN 500ML - PT DOESNT TOLERATE SMALLER VOL vedolizumab AdvReac Mild 600mg - Verified 05/02/23 01:42 must be in 500ml to tolerate Home Meds Home Medications Medication Instructions Recorded Confirmed calcium citrate 315 mg-vitamin D3 2 tabs PO BIDM ##0 03/08/15 05/02/23 5 mcg (200 unit) tablet (Calcium Citrate + D) multivitamin,tx-minerals 1 tab PO QPM #0 tabs 03/08/15 05/02/23 allopurinol 100 mg tablet 100 mg PO QPM #0 tabs 09/08/15 05/02/23 infliximab 100 mg intravenous 20 mg IV q 4 wks #0 ea 11/12/20 05/02/23 solution (Remicade) azathioprine 50 mg tablet 100 mg PO HS #0 tabs 04/30/21 05/02/23 apixaban 5 mg tablet 5 mg PO BID ##0 02/17/23 05/02/23 bupropion HCl 200 mg tablet,12 hr 200 mg PO BID 02/23/23 05/02/23 sustained-release cholecalciferol (vitamin D3) 25 8,000 mcg PO HS 02/23/23 05/02/23 mcg (1,000 unit) tablet (Vitamin D3) folic acid 1 mg tablet 1 mg PO QAM 02/23/23 05/02/23 levothyroxine 125 mcg tablet 125 mcg PO DAILYBB 02/23/23 05/02/23 liothyronine 25 mcg tablet 25 mcg PO DAILYBB 02/23/23 05/02/23 ondansetron 4 mg disintegrating 4 mg translingual Q8 PRN Nausea 02/23/23 05/02/23 tablet testosterone cypionate 200 mg/mL 250 mg IM WK 02/23/23 05/02/23 intramuscular oil vedolizumab 300 mg intravenous 600 mg IV Q4WK 03/01/23 05/02/23 solution (Entyvio) Previous Rx's Medication Instructions Recorded codeine 10 mg-guaifenesin 100 mg/5 10 ml PO Q4H PRN cough #473 mL 02/25/23 mL oral liquid (Guaifenesin AC) prednisone 10 mg tablet 10 mg PO DIRECTED #70 tabs 02/25/23 prednisone 10 mg tablet 10 mg PO .COMPLEX #42 tabs 03/01/23 prednisone 5 mg tablet 5 mg PO DAILY #28 tabs 03/01/23 prednisone 20 mg tablet 20 mg PO DAILY #13 tabs 03/20/23 hydrocortisone 5 mg tablet See Rx Instructions .Route 03/21/23 .COMPLEX #120 tabs oxycodone 5 mg tablet 5 mg PO TID PRN pain #10 tabs 03/22/23 Results & Data (ED) Vital Signs Vital Signs - 24 hr 05/02/23 01:17 05/02/23 01:30 05/02/23 01:39 Temperature 36.9 C Temperature Source Temporal Artery Scan Pulse Rate 98 H 85 Pulse Rate [Apical] Respiratory Rate 18 Respiratory Effort / Characteristics Non-Labored Spontaneous Respiratory Depth Normal Respiratory Pattern Regular Blood Pressure 142/92 H Blood Pressure [Right Arm] Blood Pressure Mean 108 Blood Pressure Mean [Right Arm] Blood Pressure Position [Right Arm] Pulse Oximetry 96 96 Oxygen Delivery Method Room Air Room Air Sepsis Recent Fever Within 48 Hours No Sepsis New/Unexplained Change in Mental Status No Sepsis Action Taken by Nursing No Action Required 05/02/23 02:51 Temperature Temperature Source Pulse Rate Pulse Rate [Apical] 87 Respiratory Rate 18 Respiratory Effort / Characteristics Non-Labored Spontaneous Respiratory Depth Normal Respiratory Pattern Regular Blood Pressure Blood Pressure [Right Arm] 135/98 Blood Pressure Mean Blood Pressure Mean [Right Arm] 110 Blood Pressure Position [Right Arm] Semi-fowlers Pulse Oximetry 95 Oxygen Delivery Method Room Air Sepsis Recent Fever Within 48 Hours Sepsis New/Unexplained Change in Mental Status Sepsis Action Taken by Nursing Laboratory Data 05/02/23 01:30 05/02/23 01:30 Lab Results 05/02/23 05/02/23 Range/Units 01:30 01:40 WBC 9.16 (4.8-10.8) K/ul RBC 5.04 (4.70-6.10) M/uL Hgb 14.9 (14.0-18.0) g/dl Hct 44.9 (42.0-52.0) % MCV 89.1 (80.0-100.0) fL MCH 29.6 (25.0-34.0) pg MCHC 33.2 (32.0-36.0) g/dL RDW Std Deviation 66.9 H (36.4-46.3) fL RDW Coeff of Sidra 20.6 H (11.5-14.5) % Plt Count 401 H (130-400) K/uL MPV 8.4 L (9.4-12.4) fL Immature Gran % (Auto) 1.3 % Neut % (Auto) 66.4 % Lymph % (Auto) 19.4 % [place] % (Auto) 9.8 % Eos % (Auto) 2.3 % Baso % (Auto) 0.8 % Neut # (Auto) 6.08 (1.40-6.50) K/uL Lymph # (Auto) 1.78 (1.20-3.40) K/uL [place] # (Auto) 0.90 H (0.11-0.59) K/uL Eos # (Auto) 0.21 (0.00-0.50) K/uL Baso # (Auto) 0.07 (0.00-0.20) K/uL Immature Gran # (Auto) 0.12 (0.01-0.20) K/uL Polychromasia 1+ Anisocytosis Present Sodium 141 (136-145) mmol/L Potassium 3.8 (3.5-5.1) mmol/L Chloride 105 (98-107) mmol/L Carbon Dioxide 29 (21-32) mmol/L Anion Gap 7 (3-11) BUN 19 (6-23) mg/dl Creatinine 1.24 (0.6-1.4) mg/dl Est Cr Clr Drug Dosing 103.9 ml/min Est GFR ( Amer) 88.6 ml/min Est GFR (Non-Af Amer) 76.4 ml/min BUN/Creatinine Ratio 15.3 (10-20) Glucose 96 (70-99(Fasting)) mg/dl Calcium 9.3 (8.6-10.3) mg/dl Total Bilirubin 0.5 (0.2-1.0) mg/dl AST 30 (13-39) U/L ALT 58 H (7-52) U/L Alkaline Phosphatase 78 (34-104) U/L Troponin I High Sens 6.9 (0-20) pg/ml Total Protein 6.2 (6.0-8.3) gm/dl Albumin 3.7 (3.4-5.0) gm/dl Globulin 2.5 (2.5-4.0) gm/dl Albumin/Globulin Ratio 1.5 (0.9-2) Lipase 72 (11-82) U/L Adenovirus (PCR) Not Detected (NotDetected) B. pertussis DNA (PCR) Not Detected (NotDetected) B.parapertussis DNA PCR Not Detected (NotDetected) C. pneumoniae DNA (PCR) Not Detected (NotDetected) Coronavirus OC43 (PCR) Not Detected (NotDetected) Coronavirus HKU1 (PCR) Not Detected (NotDetected) Coronavirus 229E (PCR) Not Detected (NotDetected) SARS-CoV-2 (PCR) Not Detected (NotDetected) Coronavirus NL63 (PCR) Not Detected (NotDetected) Human Metapneumovir PCR Not Detected (NotDetected) Influenza Type A (PCR) Not Detected (NotDetected) Influenza Type B (PCR) Not Detected (NotDetected) M. pneumoniae (PCR) Not Detected (NotDetected) Parainfluenza 1 (PCR) Not Detected (NotDetected) Parainfluenza 2 (PCR) Not Detected (NotDetected) Parainfluenza 3 (PCR) Not Detected (NotDetected) Parainfluenza 4 (PCR) Not Detected (NotDetected) RSV (PCR) Not Detected (NotDetected) Entero/Rhino (PCR) Not Detected (NotDetected) Administered Medications Discontinued Medications Fentanyl Citrate (Fentanyl Citrate Pf 100 Mcg/2 Ml Vial) 50 mcg IV NOW STA Stop: 05/02/23 01:38 Last Admin: 05/02/23 01:45 Dose: 50 mcg Documented By: ZAYNAB Furosemide (Furosemide 40 Mg/4 Ml Vial) 40 mg IV ONE ONE Stop: 05/02/23 04:34 Last Admin: 05/02/23 05:05 Dose: 40 mg Documented By: ZAYNAB Hydromorphone HCl (Hydromorphone Inj 1 Mg/Ml Syringe) 1 mg IV NOW STA Stop: 05/02/23 04:34 Last Admin: 05/02/23 05:05 Dose: 1 mg Documented By: ZAYNAB Ioversol (Optiray 320 500ml) 100 ml IV ONCE ONE Stop: 05/02/23 02:27 Last Admin: 05/02/23 02:27 Dose: 84 ml Documented By: JARROD Morphine Sulfate (Morphine Sulfate 4 Mg/Ml 1 Ml Carp\Vial) 4 mg IV NOW STA Stop: 05/02/23 02:41 Last Admin: 05/02/23 02:47 Dose: 4 mg Documented By: ZAYNAB Ondansetron HCl (Ondansetron Inj 2 Mg/Ml 2 Ml Vial) 4 mg IV NOW STA Stop: 05/02/23 02:41 Last Admin: 05/02/23 02:47 Dose: 4 mg Documented By: ZAYNAB Imaging Data Radiologist's Impression: Chest CT 05/02/23 01:24 Exam(s): CT CHEST With Contrast IV Amt: 84 ML OPTIRAY 320 EXAM: CT Chest With Intravenous Contrast CLINICAL HISTORY: Reason for exam: CP radiating into back; reported mediastinal mass. TECHNIQUE: Axial computed tomography images of the chest with intravenous contrast. Automated exposure control was utilized for the study. A dose lowering technique was utilized adhering to the principles of ALARA. CONTRAST: Patient received 84 ML OPTIRAY 320 of IV contrast COMPARISON: 02/11/2023 FINDINGS: Lungs: Central groundglass opacities within the bilateral lower lobes most concerning for fluid overload. Pleural space: Small right pleural effusion. No pneumothorax. Heart: Unremarkable. No cardiomegaly. No significant pericardial effusion. No significant coronary artery calcifications. Bones/joints: Unremarkable. No acute fracture. No dislocation. Soft tissues: Unremarkable. Vasculature: Unremarkable. No thoracic aortic aneurysm. Lymph nodes: Unremarkable. No enlarged lymph nodes. IMPRESSION: Central groundglass opacities within the bilateral lower lobes most concerning for fluid overload. Electronically signed by: Vinay Fields M.D. 05/02/23 03:30 AM Discharge Plan Visit Data Chief Complaint: Chest Pain Stated Complaint: STABBING CHEST PAIN RAIDIATING TO BACK ED Provider: Jackie Courtney Discharge Problem: Chest pain Forms Stand Alone Forms: My [facility] Software [employer] Prescriptions Prescriptions: No Action multivitamin,tx-minerals Tablet 1 tab PO QPM Qty: 0 calcium citrate-vitamin D3 [Calcium Citrate + D] 315-200 mg-unit Tablet 2 tabs PO BIDM Qty: 0 allopurinol 100 mg Tablet 100 mg PO QPM Qty: 0 Remicade 100 mg recon soln 20 mg IV q 4 wks Qty: 0 apixaban 5 mg tablet 5 mg PO BID Qty: 0 hydrocortisone 5 mg tablet See Rx Instructions .ROUTE .COMPLEX Qty: 120 1RF Rx Instructions: take 15mg orally in the morning;and take 5mg at lunchtime oxycodone 5 mg tablet 5 mg PO TID PRN (Reason: pain) Qty: 10 0RF Rx Instructions: Supervising physician Darren Flowers MD [facility] [id number] Entyvio 300 mg recon soln 600 mg IV Q4WK prednisone 5 mg tablet 5 mg PO DAILY Qty: 28 0RF Rx Instructions: to use with 10 mg for taper. to use with 5 mg tab per taper. 35 mg x 1 wk then 25 mg x 1 wk, then 15 x 1 wk, then 5 x 1 wk prednisone 10 mg tablet 10 mg PO .COMPLEX Qty: 42 0RF Rx Instructions: to use with 5 mg tab per taper. 35 mg x 1 wk then 25 mg x 1 wk, then 15 x 1 wk, then 5 x 1 wk azathioprine 50 mg tablet 100 mg PO HS Qty: 0 liothyronine 25 mcg tablet 25 mcg PO DAILYBB testosterone cypionate 200 mg/mL oil 250 mg IM WK Rx Instructions: take on tuesday cholecalciferol (vitamin D3) [Vitamin D3] 25 mcg (1,000 unit) Tablet 8,000 mcg PO HS levothyroxine 125 mcg tablet 125 mcg PO DAILYBB folic acid 1 mg Tablet 1 mg PO QAM bupropion HCl 200 mg tablet sustained-release 12 hr 200 mg PO BID ondansetron 4 mg tablet,disintegrating 4 mg translingual Q8 PRN (Reason: Nausea) prednisone 10 mg tablet 10 mg PO DIRECTED Qty: 70 0RF Rx Instructions: 4 daily x 1 wk->3 daily x 1 wk->2 daily x1wk->1 daily codeine-guaifenesin [Guaifenesin AC] 10-100 mg/5 mL liquid 10 ml PO Q4H PRN (Reason: cough) Qty: 473 0RF prednisone 20 mg tablet 20 mg PO DAILY Qty: 13 0RF Rx Instructions: take 60 mg (3 tabs) days 1-3, take 40 mg (2 tabs) days 4-5 Referrals Referrals: Pro,Darren Eubanks MD [Primary Care Provider] -
[2023-05-02] MEDS ORDERED: fentaNYL citrate PF 100 MCG/2 ML VIAL IV STA (01:37)
[2023-05-02 01:53] LABS: Basophils # (auto) 0.07 K/uL (0.00-0.20); Basophils % (auto) 0.8 %; Eosinophils # (auto) 0.21 K/uL (0.00-0.50); Eosinophils % (auto) 2.3 %; Hematocrit (blood only) 44.9 % (42.0-52.0); Hemoglobin 14.9 g/dl (14.0-18.0); Immature Granulocytes # (auto) 0.12 K/uL (0.01-0.20); Immature Granulocytes % (auto) 1.3 %; Lymphocytes # (auto) 1.78 K/uL (1.20-3.40); Lymphocytes % (auto) 19.4 %; Mean Corpuscular Hemoglobin 29.6 pg (25.0-34.0); Mean Corpuscular Hgb Conc 33.2 g/dL (32.0-36.0); Mean Corpuscular Volume 89.1 fL (80.0-100.0); Mean Platelet Volume 8.4 fL (9.4-12.4); Monocytes % (auto) 9.8 %; Neutrophils # (auto) 6.08 K/uL (1.40-6.50); Neutrophils % (auto) 66.4 %; Platelet Count 401 K/uL (130-400); RDW Coefficient of Variation 20.6 % (11.5-14.5); RDW Standard Deviation 66.9 fL (36.4-46.3); Red Blood Count 5.04 M/uL (4.70-6.10); White Blood Count 9.16 K/ul (4.8-10.8)
[2023-05-02 02:11] LABS: Albumin Globulin Ratio 1.5 (0.9-2); Albumin Level 3.7 gm/dl (3.4-5.0); BUN Creatinine Ratio 15.3 (10-20); Bilirubin,Total 0.5 mg/dl (0.2-1.0); Calcium 9.3 mg/dl (8.6-10.3); Creatinine Clr Calc Pharmacy 103.9 ml/min; Est GFR (African American) 88.6 ml/min; Est GFR (Non-African American) 76.4 ml/min; Globulin 2.5 gm/dl (2.5-4.0); Potassium 3.8 mmol/L (3.5-5.1); Total Protein 6.2 gm/dl (6.0-8.3)
[2023-05-02 02:14] LABS: Anisocytosis Present; Polychromasia 1+
[2023-05-02 02:18] LABS: Troponin I High Sensitivity 6.9 pg/ml (0-20)
[2023-05-02] MEDS ORDERED: OPTIRAY 320 500ml IV ONE ×2 (02:26→14:23)
[2023-05-02] MEDS ORDERED: MoRPHine SULFATE 4 MG/ML 1 ML CARP\\VIAL IV STA (02:40)
[2023-05-02] MEDS ORDERED: ONDANSETRON INJ 2 MG/ML 2 ML VIAL IV STA ×2 (02:40→05:36)
--- NOTE | 2023-05-02 03:30 | CT Scan Report ---
Exam(s): CT CHEST With Contrast IV Amt: 84 ML OPTIRAY 320 EXAM: CT Chest With Intravenous Contrast CLINICAL HISTORY: Reason for exam: CP radiating into back; reported mediastinal mass. TECHNIQUE: Axial computed tomography images of the chest with intravenous contrast. Automated exposure control was utilized for the study. A dose lowering technique was utilized adhering to the principles of ALARA. CONTRAST: Patient received 84 ML OPTIRAY 320 of IV contrast COMPARISON: 02/11/2023 FINDINGS: Lungs: Central groundglass opacities within the bilateral lower lobes most concerning for fluid overload. Pleural space: Small right pleural effusion. No pneumothorax. Heart: Unremarkable. No cardiomegaly. No significant pericardial effusion. No significant coronary artery calcifications. Bones/joints: Unremarkable. No acute fracture. No dislocation. Soft tissues: Unremarkable. Vasculature: Unremarkable. No thoracic aortic aneurysm. Lymph nodes: Unremarkable. No enlarged lymph nodes. IMPRESSION: Central groundglass opacities within the bilateral lower lobes most concerning for fluid overload. Electronically signed by: Vinay Fields M.D. 05/02/23 03:30 AM
[2023-05-02 03:34] LABS: Adenovirus PCR Not Detected (NotDetected); Bordetella parapertussis PCR Not Detected (NotDetected); Bordetella pertussis PCR Not Detected (NotDetected); Chlamydia pneumoniae PCR Not Detected (NotDetected); Coronavirus 229E PCR Not Detected (NotDetected); Coronavirus CoV-2 (COVID19)PCR Not Detected (NotDetected); Coronavirus HKU1 PCR Not Detected (NotDetected); Coronavirus NL63 PCR Not Detected (NotDetected); Coronavirus OC43PCR Not Detected (NotDetected); Human Metapneumovirus PCR Not Detected (NotDetected); Influenza A PCR Not Detected (NotDetected); Influenza B PCR Not Detected (NotDetected); Mycoplasma pneumoniae PCR Not Detected (NotDetected); Parainfluenza Virus 1 PCR Not Detected (NotDetected); Parainfluenza Virus 2 PCR Not Detected (NotDetected); Parainfluenza Virus 3 PCR Not Detected (NotDetected); Parainfluenza Virus 4 PCR Not Detected (NotDetected); Respiratory Syncytial VirusPCR Not Detected (NotDetected); Rhinovirus/Enterovirus PCR Not Detected (NotDetected)
[2023-05-02] MEDS ORDERED: FUROSEMIDE 40 MG/4 ML VIAL IV ONE (04:33)
[2023-05-02] MEDS ORDERED: HYDROmorphone INJ 1 MG/ML SYRINGE IV STA (04:33)
--- NOTE | 2023-05-02 04:46 | History & Physical Report ---
Date of Service May 02, 2023 Assessment & Plan (1) Chest pain: Plan: -Pt presents with acute worsening of progressive midsternal chest pain x3 months in background of complicated chest disease concerning for malignancy -I suspect this potential malignant process of lymphoma, which is being evaluated by [facility], is primarily driving his chest pain -Does not appear to of cardiac source/ACS given negative troponin, normal EKG and constant nature of the pain -Does not appear to be infectious source either -Procalcitonin pending -Chest CT does show b/l GGO possibly indicating fluid overload though this is likely secondary to the mass rather given the pt's euvolemic status- will trial Lasix 40 mg IV x1 and observe if symptoms improve -BNP is pending -Will order TTE -As the chest pain does radiate to the R flank, will further image with CTAP w/ contrast -Pain control- Dilaudid 0.5 mg IV q6h PRN, escalate if needed (2) LAD (lymphadenopathy), mediastinal: Plan: -As above, suspect this is likely cause of his chest pain and other symptoms -Pt will reach out to thread clipper in [facility] via portal -Dr. Raheel Hendrickson, [facility]- [phone] (3) Ulcerative colitis: Plan: -Not in acute flare at present -Continue azathioprine in hospital -Pt also on infliximab and vedolizumab as outpatient (4) Depression: Plan: -Continue Wellbutrin (5) Adrenal insufficiency: Plan: -Continue home hydrocortisone -Holding off on stress dosing currently -Pt reports his thread clipper wants no further steroid administration until PET scan on 05/07 (6) DVT (deep venous thrombosis): Plan: -Recurrent DVTs in RLE x3 -Continue Eliquis (7) Gout: Plan: -Not in acute flare at present -Continue allopurinol (8) Hypothyroidism: Plan: -Continue levothyroxine, liothyronine Plan FENGI: Regular Code status: Full DVT prophylaxis: Eliquis Isolation: None Unit: Medical/surgical with telemetry Disposition planning: May possibly need transfer to tertiary care center with thoracic surgery History of Present Illness Chief Complaint: Chest pain Primary Care Provider: Darren Flowers MD Pt is 32 yo M with complicated PMH including Crohn's disease, adrenal insufficiency, hypopituitarism, recurrent DVTs on Eliquis, gout, depression and hypothyroidism presenting with chest pain. Pt has had several months of productive cough, substernal chest pain, hemoptysis and fevers for which he had been hospitalized at [facility] 02/23-02/25 and been followed as outpatient- had workup for mediastinal lymphadenopathy including multiple chest CT scans, bronchoscopy with biopsies, concern for sarcoidosis which has since been ruled out. Pt was hospitalized at [facility] from 03/28-04/09 for these symptoms. Bronchoscopy 03/29 results include significant vascularization of hilar lymph node and vascular endobronchial nodules in right mainstem bronchus. Pt found to have diffuse perilymphatic nodules and b/l hilar/mediastinal LAD on CT. 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 Biopsy results revealed mixed B and T-cell populations. Pt saw [facility] thread clipper for f/u on 04/[address] at that time apparently found increase in mediastinal mass which was concerning for lymphoma. He is scheduled for PET scan on 05/07. Pt reports worsening substernal chest pain x10 days- moderate/high severity, sharp, constant, associated with dyspnea, exacerbated by laying flat, not alleviated by Tylenol. Reports increasing fatigue and orthopnea but denies increased leg swelling or weight gain (pt has, on the contrary, lost 50+ lbs since December 2022 unintentionally). Has also had productive cough of clear sputum for past few days, denies any fever, chills. Reports sudden onset of pain radiation to R flank and lower back since day prior. This was particularly concerning for pt and he reported to ER as instructed by [facility] thread clipper due to worsening pain. Pt arrived to ER hemodynamically stable. Initial evaluation- unremarkable CBC, CMP. Negative troponin. RVP negative. CXR with some b/l vascular congestion, ground-glass opacities. Chest CT with similar findings concerning for fluid overload. ER interventions include morphine 4 mg IV, Zofran 4 mg IV, fentanyl 50 mcg, Dilaudid 1 mg IV, Lasix 40 mg IV. At present, pt reports continued chest pain with radiation to flank, though did have some relief from morphine and fentanyl. Stated he would reach out to Dr. Raheel Hendrickson, his thread clipper at [facility], via portal. Allergies Allergy/AdvReac Type Severity Reaction Status Date / Time infliximab AdvReac Mild PLZ MIX Verified 05/02/23 01:42 REMICADE IN 500ML - PT DOESNT TOLERATE SMALLER VOL vedolizumab AdvReac Mild 600mg - Verified 05/02/23 01:42 must be in 500ml to tolerate Home Medications Medication Instructions Recorded Confirmed Type calcium citrate 315 mg-vitamin D3 2 tabs PO BIDM ##0 03/08/15 05/02/23 History 5 mcg (200 unit) tablet (Calcium Citrate + D) multivitamin,tx-minerals 1 tab PO QPM #0 tabs 03/08/15 05/02/23 History allopurinol 100 mg tablet 100 mg PO QPM #0 tabs 09/08/15 05/02/23 History infliximab 100 mg intravenous 20 mg IV q 4 wks #0 ea 11/12/20 05/02/23 History solution (Remicade) azathioprine 50 mg tablet 100 mg PO HS #0 tabs 04/30/21 05/02/23 History apixaban 5 mg tablet 5 mg PO BID ##0 02/17/23 05/02/23 History bupropion HCl 200 mg tablet,12 hr 200 mg PO BID 02/23/23 05/02/23 History sustained-release cholecalciferol (vitamin D3) 25 8,000 mcg PO HS 02/23/23 05/02/23 History mcg (1,000 unit) tablet (Vitamin D3) folic acid 1 mg tablet 1 mg PO QAM 02/23/23 05/02/23 History levothyroxine 125 mcg tablet 125 mcg PO DAILYBB 02/23/23 05/02/23 History liothyronine 25 mcg tablet 25 mcg PO DAILYBB 02/23/23 05/02/23 History ondansetron 4 mg disintegrating 4 mg translingual Q8 PRN Nausea 02/23/23 05/02/23 History tablet testosterone cypionate 200 mg/mL 250 mg IM WK 02/23/23 05/02/23 History intramuscular oil codeine 10 mg-guaifenesin 100 mg/5 10 ml PO Q4H PRN cough #473 mL 02/25/23 05/02/23 Rx mL oral liquid (Guaifenesin AC) prednisone 10 mg tablet 10 mg PO DIRECTED #70 tabs 02/25/23 05/02/23 Rx prednisone 10 mg tablet 10 mg PO .COMPLEX #42 tabs 03/01/23 05/02/23 Rx prednisone 5 mg tablet 5 mg PO DAILY #28 tabs 03/01/23 05/02/23 Rx vedolizumab 300 mg intravenous 600 mg IV Q4WK 03/01/23 05/02/23 History solution (Entyvio) prednisone 20 mg tablet 20 mg PO DAILY #13 tabs 03/20/23 05/02/23 Rx hydrocortisone 5 mg tablet See Rx Instructions .Route 03/21/23 05/02/23 Rx .COMPLEX #120 tabs oxycodone 5 mg tablet 5 mg PO TID PRN pain #10 tabs 03/22/23 05/02/23 Rx Past Med/Surg History Medical History (Updated 05/02/23 @ 05:18 by Kristy York MD) DVT (deep venous thrombosis) Vitamin D deficiency Ureteric stone Osteopenia 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 See pt portal msg 04/26/21 for historical details. Bleeding ulcer Chronic ulcer of lower extremity Anxiety about health with concomitant depression Pyoderma gangrenosum Enteropathic arthritis Erythema nodosum Adrenal insufficiency Thrombophlebitis Ulcerative colitis Septic arthritis (01/17/14) Cellulitis of right leg Surgical History No history of previous surgery Family History Denies family history of Ovarian cancer Prostate cancer Myocardial infarction Breast cancer Colorectal cancer Social History Smoking Status: Never smoker Second Hand Exposure: No; Hx Alcohol Use: No Hx Substance Use: No Preferred Language: Togolese Communication Ability: Effective Visual Impairment: No Limitations Hearing Ability: Normal Disability Liaison Officer Required: No Beliefs That Will Affect Care: None marital status: Single Current Living Situation: Family current occupational status: student Feels Safe at Home: Yes Childhood Exposure to Second-Hand Smoke: No Dental Care, Regularly: Yes Physical Activity Frequency: Daily Seatbelt Use: always Sunscreen Use: Yes Assistive Devices: None Review of Systems Review of Systems: Per HPI/Subjective Physical Exam Physical Exam: General: well-appearing, no acute distress HEENT: PERRL, EOMI, conjunctivae clear without injection, anicteric sclerae, moist mucous membranes, clear oropharynx without exudate or erythema Neck: supple, trachea midline, no thyromegaly, no JVD, no cervical lymphadenopathy CV: RRR, normal S1 and S2, no murmurs Resp: Diminished breath sounds with some mild bibasilar crackles, no increased work of breathing, no wheezes Abd: Soft, tender to R flank, nondistended, no guarding or rebound, no hepatosplenomegaly MSK: Normal bulk of all four extremities Neuro: AOx3, no focal motor or sensory deficits Skin: no rashes or lesions, warm and dry. R sided torso surgical scars noted. Ext: +mild hronic mild RLE swelling from DVTs, no LLE peripheral edema or erythema, capillary refill <2s in all four extremities, 2+ LE peripheral pulses b/l Results & Data Results & Data Vital Signs (Past 12 Hours) Vital Signs Temp Pulse Pulse Resp BP BP Pulse Ox 05/02/23 02:51 87 18 135/98 95 05/02/23 01:39 85 05/02/23 01:30 96 05/02/23 01:17 36.9 C 98 H 18 142/92 H 96 O2 Del Method 05/02/23 02:51 Room Air 05/02/23 01:39 05/02/23 01:30 Room Air 05/02/23 01:17 Room Air Resident Activity Tracking Resident Involvement: Resident Care Provided Care Provided: Adult Hospital Medicine (4) Depression Depression Type: reactive depression Qualified Code(s): F32.9 - Major depressive disorder, single episode, unspecified
[2023-05-02] MEDS ORDERED: HYDROmorphone INJ 0.5 MG/0.5 ML SYR IV PRN (05:59)
[2023-05-02] MEDS ORDERED: ONDANSETRON INJ 2 MG/ML 2 ML VIAL IV PRN (05:59)
[2023-05-02] MEDS ORDERED: LEVOTHYROXINE SODIUM 125 MCG TABLET PO SCH (06:30)
[2023-05-02] MEDS ORDERED: LIOTHYRONINE SODIUM 25 MCG TAB PO SCH (06:30)
[2023-05-02] MEDS ORDERED: PROMETHAZINE HCL 25 MG TAB PO ONE (06:45)
[2023-05-02] MEDS ORDERED: PROMETHAZINE HCL 12.5 MG in SODIUM CHLORIDE 0.9% 50 ML IV STA (06:50)
[2023-05-02] MEDS ORDERED: PROMETHAZINE 12.5 MG/50.5 ML NSS IV ONE ×2 (06:59→07:02)
--- NOTE | 2023-05-02 07:08 | XRay Report ---
XR chest 1V portable HISTORY: Chest pain, nonspecific COMPARISON: Chest 03/20/2023. FINDINGS: No pneumothorax. No pleural effusions. The cardiac silhouette is normal in size. No acute f ractures identified. There is mild central pulmonary vascular congestion without overt edema. No new focal lung consolidations. There is a trace right pleural effusion. IMPRESSION: Mild central pulmonary vascular congestion and a trace right pleural effusion. ACT 112: Negative or not required by law. Electronically signed by: Isaias Bolivar M.D. 05/02/2023 7:07 AM
[2023-05-02 07:25] LABS: Hematocrit (blood only) 47.8 % (42.0-52.0); Hemoglobin 15.9 g/dl (14.0-18.0); Mean Corpuscular Hemoglobin 29.3 pg (25.0-34.0); Mean Corpuscular Hgb Conc 33.3 g/dL (32.0-36.0); Mean Platelet Volume 8.1 fL (9.4-12.4); Platelet Count 413 K/uL (130-400); RDW Standard Deviation 67.7 fL (36.4-46.3); Red Blood Count 5.43 M/uL (4.70-6.10); White Blood Count 9.06 K/ul (4.8-10.8)
[2023-05-02] MEDS ORDERED: HYDROCORTISONE 10 MG TAB PO SCH ×2 (07:30→12:00)
[2023-05-02 07:41] LABS: Albumin Globulin Ratio 1.3 (0.9-2); BUN Creatinine Ratio 14.2 (10-20); Bilirubin,Total 0.7 mg/dl (0.2-1.0); Calcium 9.5 mg/dl (8.6-10.3); Creatinine Clr Calc Pharmacy 107.3 ml/min; Est GFR (African American) 92.2 ml/min; Est GFR (Non-African American) 79.5 ml/min; Magnesium 1.8 mg/dl (1.7-2.4); Potassium 3.7 mmol/L (3.5-5.1)
[2023-05-02] MEDS ORDERED: FOLIC ACID 1 MG TAB PO SCH (09:00)
[2023-05-02] MEDS ORDERED: buPROPion SR 100 MG TABCR PO SCH (09:00)
[2023-05-02] MEDS ORDERED: APIXABAN 5 MG TABLET PO SCH (09:00)
--- NOTE | 2023-05-02 09:42 | Hospitalist Progress Note ---
Date of Service May 02, 2023 Assessment & Plan (1) Chest pain: Plan: In summary, patient is a 32 year old immunocompromised male with a history of DVT, ulcerative colitis, arthritis due to ulcerative colitis, kidney stones, pleural effusion, and partial robotic resection of bilateral hilar/mediastinal lymphadenopathy and diffuse perilymphatic nodules presented to the ED last night with constant, worsening, substernal chest pain radiating to his right back and right flank worsened with laying down, shortness of breath, nausea, and vomiting. Patients physical exam revealed right sided CVA tenderness, reproducible chest and flank pain. Patients CT of the chest in the ED found central groundglass opacities within the bilateral lower lobes most concerning for fluid overload, his prior abdominal CT demonstrated liver hypodensities. -Pt presents with acute worsening of progressive substernal chest pain x3 months that now radiates to right flank and right lower back that is worse upon laying down in background of complicated chest disease concerning for malignancy. - Given patient's medical history and physical exam, I suspect malignancy such as lymphoma as a possible condition causing this chest pain. This is being actively evaluated at [facility]. - Given patient's negative troponin and normal EKG, less suspicious of a cardiac origin. -Does not appear to be infectious source either given negative serology. -Procalcitonin pending -Chest CT shows b/l ground glass opacities possibly indicating fluid overload though this is likely secondary to the mass rather given the pt's euvolemic status. Patient given trial Lasix 40 mg IV x1 for symptomatic relief. -As the chest pain does radiate to the R flank, will further image with CTAP w/ contrast -Pain control- Dilaudid 0.5 mg IV q6h PRN, will escalate if needed (2) LAD (lymphadenopathy), mediastinal: Plan: -Patient's lymphadenopathy could be the cause of his chest pain and other symptoms -Patient and family have their pulmonologists number and contact in their [facility] portal and can reach out as needed (Dr. Raheel Hendrickson, [facility]- [phone]; his personal number is [phone]) and they were contacted and left a message. Patient does not yet have an oncologist and Dr. Hendrickson's office was contacted and Dr Hendrickson was notified of patient's status. Given patient's stable vitals, he mentioned that he is comfortable with patient's discharge over hospital transfer. Dr. Hendrickson will try to move his PET scan forward for further outpatient management. Patient has an appointment in [facility] for a PET scan and biopsy as needed this Tuesday. TTE results from 05/02/2023 normal. Less likely that patient has any concerning emergency conditions such as any large pleural effusion causing tamponade, or mass erosion into pericardium, and/or compression of right ventricle leading to fluid overload (however, this is less likely cause for pulmonary edema). (3) Ulcerative colitis: Plan: -Not in acute flare at present -Continue azathioprine in hospital -Pt also on infliximab and vedolizumab as outpatient (4) Depression: Plan: -Continue Wellbutrin (5) Adrenal insufficiency: Plan: -Continue home hydrocortisone -Holding off on stress dosing currently -Pt reports his well digger wants no further steroid administration until PET scan on 05/07 (6) DVT (deep venous thrombosis): Plan: -Recurrent DVTs in RLE x3 - Negative for pulmonary embolism -Continue Eliquis (7) Gout: Plan: -Not in acute flare at present -Continue allopurinol (8) Hypothyroidism: Plan: -Continue levothyroxine, liothyronine Plan FENGI: Regular Code status: Full DVT prophylaxis: Eliquis Isolation: None Unit: Medical/surgical with telemetry Disposition planning: May possibly need transfer to tertiary care center with thoracic surgery Admission and Anticipated Discharge Date Admission Date: May 02, 2023 Subjective Patient is a 32 year old immunocompromised male with a history of DVT, ulcerative colitis, arthritis due to ulcerative colitis, kidney stones, pleural effusion, and partial robotic resection of bilateral hilar/mediastinal lymphadenopathy and diffuse perilymphatic nodules presented to the ED last night with constant, worsening, substernal chest pain for the past 10 days. He reports shortness of breath with the chest pain. Both the pain and shortness of breath are worse when lying flat with radiating pain into his back and right flank. Patient also has a several month history of cough, hemoptysis, chest discomfort, and fevers found to have bilateral hilar/mediastinal lymphadenopathy and diffuse perilymphatic nodules last month. 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 He was coughing up blood for 10 weeks before he went to [facility]. He reports having a history of autoimmune disorders and at the time, physicians were suspicious of sarcoidosis. [facility] physicians have studied his case and they have not ruled out sarcoidosis but his symptoms were not fully presenting as this diagnosis. Due to his history of autoimmune disorders such as ulcerative colitis, arthritis due to ulcerative colitis (in knee and wrists especially), erythema nodosum, pyoderma gangrenosum, and lymphocytic hypophysitis who has been on high dose steroids. His doctors believed that his steroids could affect his biopsy results and as a result has been off steroids for a month and is scheduled for a PET scan this tuesday in [place] with a biopsy following this as needed. His differentials provided by physicians at the time were lymphoma, sarcoidosis, fibrosis, IgG 4 disease (which has been ruled out by IgG testing). Past abdominal CT from 03/27/2023 in [place] have shown diffusely abnormal liver, test for liver stiffness was normal. CT Impression revealed innumerable liver hypodensities. Could be commissary representative of hepatic microabscesses. Could be underlying malignancy such as lymphoma and sarcoidosis is also a possibility. Patient had a bronchoscopy performed on 03/29 which showed erythematous vocal cords, 2 to 3 mm vascular endobronchial nodules in the right mainstem bronchus and significant vascularization of the hilar lymph node. 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 While in the ED, EKG revealed normal sinus rhythm, normal troponin, and chest x- ray was negative for pneumonia. CT of chest in the ED found central groundglass opacities within the bilateral lower lobes most concerning for fluid overload.He was given 50 mcg IV fentanyl for symptomatic management. After he reported significant pain and nausea, he was given 4 mg of IV Zofran and 4 mg of IV morphine. Currently the patient reports that he still has pressurized chest pain, feels like there is a golf ball there. The chest pain is still worse with laying down and he is unable to take deep breaths due to the pain. While the pain medications help with the pain in his chest radiating to his back and flank, it comes back when the medicine wears off. He has had chest pain in the past when his symptoms initially began in mid-December, but reports that this chest pain is different, more midsternal and there is no pain to the esophagus area like there was last time. This chest pain is also much worse. He is coughing up mucus and sometimes blood as well. He has been treated with antibiotics and steroids in the past but is not taking any steroids currently for his PET scan appointment in [place]. Patient also reports a radiating headache from back of neck to both sides of his head. He has never had this before and has no history of migraines, visual, or auditory disturbances. Patient also has had severe nausea and vomiting over the course of the past 5 hours. Review of Systems Review of Systems: General: Reports 50 pound unintentional weightloss, and fatigue Respiratory: reports cough, hemoptysis, shortness of breath and wheezing, with pain in chest and back Cardiovascular: Reports worsening substernal chest pain radiating to back and right flank worsening when lying flat. Reports lower extremity edema and swelling in wrists. no palpitations but had them in the past at [facility] study. MSK: reports generalized muscle weakness and joint aches, which he attributes to arthritis due to ulcerative colitis GI: reports nausea and vomiting. No abdominal pain, normal bowel movements : No urinary pain, retention Skin: denies rashes, lesions, moles, and skin concerns Heme/Lymph: denies bruising and bleeding but he is on blood thinners so reports having increased bruising tendencies. Physical Exam Physical Exam: General: Patient is an ill appearing male, awake, alert, and oriented Eye: PERRL (pupils equal and responsive to light), EOMI (extraocular motions intact) HEENT: normocephalic, atraumatic, no lymphadenopathy Respiratory: lungs CTA, however patients breaths were very shallow and limited due to chest pain, BS equal, symmetrical expansion, no rales, rhonchi or wheezing CV: normal rate and rhythm, no murmurs, rubs, or gallops. Pain in substernal c hest area, right flank, and right side of lower back was reproducible upon palpation, GI: abdomen soft, non-tender, non-distended, normal bowel sounds, no organomegaly : CVA tenderness present on right side Neurologic: alert and oriented Psychiatric: calm and cooperative, appropriate mood and affect Results & Data Results & Data Vital Signs (Past 12 Hours) Vital Signs Temp Pulse Pulse Resp BP BP Pulse Ox 05/02/23 08:06 83 17 144/103 H 97 05/02/23 08:06 05/02/23 07:58 86 05/02/23 05:25 86 05/02/23 05:05 84 20 155/104 H 96 05/02/23 02:51 87 18 135/98 95 05/02/23 01:39 85 05/02/23 01:30 96 05/02/23 01:17 36.9 C 98 H 18 142/92 H 96 Pulse Ox O2 Del Method O2 Del Method 05/02/23 08:06 Room Air 05/02/23 08:06 97 Room Air 05/02/23 07:58 05/02/23 05:25 05/02/23 05:05 Room Air 05/02/23 02:51 Room Air 05/02/23 01:39 05/02/23 01:30 Room Air 05/02/23 01:17 Room Air Laboratory Results Chest CT 05/02/23 01:24 Exam(s): CT CHEST With Contrast IV Amt: 84 ML OPTIRAY 320 EXAM: CT Chest With Intravenous Contrast CLINICAL HISTORY: Reason for exam: CP radiating into back; reported mediastinal mass. TECHNIQUE: Axial computed tomography images of the chest with intravenous contrast. Automated exposure control was utilized for the study. A dose lowering technique was utilized adhering to the principles of ALARA. CONTRAST: Patient received 84 ML OPTIRAY 320 of IV contrast COMPARISON: 02/11/2023 FINDINGS: Lungs: Central groundglass opacities within the bilateral lower lobes most concerning for fluid overload. Pleural space: Small right pleural effusion. No pneumothorax. Heart: Unremarkable. No cardiomegaly. No significant pericardial effusion. No significant coronary artery calcifications. Bones/joints: Unremarkable. No acute fracture. No dislocation. Soft tissues: Unremarkable. Vasculature: Unremarkable. No thoracic aortic aneurysm. Lymph nodes: Unremarkable. No enlarged lymph nodes. IMPRESSION: Central groundglass opacities within the bilateral lower lobes most concerning for fluid overload. Electronically signed by: Vinay Fields M.D. 05/02/23 03:30 AM Chest X-Ray 05/02/23 01:24 XR chest 1V portable HISTORY: Chest pain, nonspecific COMPARISON: Chest 03/20/2023. FINDINGS: No pneumothorax. No pleural effusions. The cardiac silhouette is normal in size. No acute fractures identified. There is mild central pulmonary vascular congestion without overt edema. No new focal lung consolidations. There is a trace right pleural effusion. IMPRESSION: Mild central pulmonary vascular congestion and a trace right pleural effusion. ACT 112: Negative or not required by law. Electronically signed by: Isaias Bolivar M.D. 05/02/2023 7:07 AM 05/02/23 05/02/23 05/02/23 07:05 05:56 01:40 WBC 9.06 RBC 5.43 Hgb 15.9 Hct 47.8 MCV 88.0 MCH 29.3 MCHC 33.3 RDW Std Deviation 67.7 H RDW Coeff of Sidra 21.0 H Plt Count 413 H MPV 8.1 L Immature Gran % (Auto) Neut % (Auto) Lymph % (Auto) [place] % (Auto) Eos % (Auto) Baso % (Auto) Neut # (Auto) Lymph # (Auto) [place] # (Auto) Eos # (Auto) Baso # (Auto) Immature Gran # (Auto) Polychromasia Anisocytosis Sodium 141 Potassium 3.7 Chloride 101 Carbon Dioxide 31 Anion Gap 9 BUN 17 Creatinine 1.20 Est Cr Clr Drug Dosing 107.3 Est GFR ( Amer) 92.2 Est GFR (Non-Af Amer) 79.5 BUN/Creatinine Ratio 14.2 Glucose 96 Calcium 9.5 Magnesium 1.8 Total Bilirubin 0.7 AST 31 ALT 63 H Alkaline Phosphatase 87 Troponin I High Sens B-Natriuretic Peptide 19 Total Protein 7.0 Albumin 4.0 Globulin 3.0 Albumin/Globulin Ratio 1.3 Lipase Procalcitonin Adenovirus (PCR) Not Detected B. pertussis DNA (PCR) Not Detected B.parapertussis DNA PCR Not Detected C. pneumoniae DNA (PCR) Not Detected Coronavirus OC43 (PCR) Not Detected Coronavirus HKU1 (PCR) Not Detected Coronavirus 229E (PCR) Not Detected SARS-CoV-2 (PCR) Not Detected Coronavirus NL63 (PCR) Not Detected Human Metapneumovir PCR Not Detected Influenza Type A (PCR) Not Detected Influenza Type B (PCR) Not Detected M. pneumoniae (PCR) Not Detected Parainfluenza 1 (PCR) Not Detected Parainfluenza 2 (PCR) Not Detected Parainfluenza 3 (PCR) Not Detected Parainfluenza 4 (PCR) Not Detected RSV (PCR) Not Detected Entero/Rhino (PCR) Not Detected 05/02/23 01:30 WBC 9.16 RBC 5.04 Hgb 14.9 Hct 44.9 MCV 89.1 MCH 29.6 MCHC 33.2 RDW Std Deviation 66.9 H RDW Coeff of Sidra 20.6 H Plt Count 401 H MPV 8.4 L Immature Gran % (Auto) 1.3 Neut % (Auto) 66.4 Lymph % (Auto) 19.4 [place] % (Auto) 9.8 Eos % (Auto) 2.3 Baso % (Auto) 0.8 Neut # (Auto) 6.08 Lymph # (Auto) 1.78 [place] # (Auto) 0.90 H Eos # (Auto) 0.21 Baso # (Auto) 0.07 Immature Gran # (Auto) 0.12 Polychromasia 1+ Anisocytosis Present Sodium 141 Potassium 3.8 Chloride 105 Carbon Dioxide 29 Anion Gap 7 BUN 19 Creatinine 1.24 Est Cr Clr Drug Dosing 103.9 Est GFR ( Amer) 88.6 Est GFR (Non-Af Amer) 76.4 BUN/Creatinine Ratio 15.3 Glucose 96 Calcium 9.3 Magnesium Total Bilirubin 0.5 AST 30 ALT 58 H Alkaline Phosphatase 78 Troponin I High Sens 6.9 B-Natriuretic Peptide Total Protein 6.2 Albumin 3.7 Globulin 2.5 Albumin/Globulin Ratio 1.5 Lipase 72 Procalcitonin < 0.05 Adenovirus (PCR) B. pertussis DNA (PCR) B.parapertussis DNA PCR C. pneumoniae DNA (PCR) Coronavirus OC43 (PCR) Coronavirus HKU1 (PCR) Coronavirus 229E (PCR) SARS-CoV-2 (PCR) Coronavirus NL63 (PCR) Human Metapneumovir PCR Influenza Type A (PCR) Influenza Type B (PCR) M. pneumoniae (PCR) Parainfluenza 1 (PCR) Parainfluenza 2 (PCR) Parainfluenza 3 (PCR) Parainfluenza 4 (PCR) RSV (PCR) Entero/Rhino (PCR) (4) Depression Depression Type: reactive depression Qualified Code(s): F32.9 - Major depressive disorder, single episode, unspecified
[2023-05-02] MEDS ORDERED: LIOTHYRONINE SODIUM 5 MCG TAB PO SCH (10:20)
--- NOTE | 2023-05-02 12:45 | Electrocardiogram Report ---
Test Reason : Blood Pressure : / mmHG Vent. Rate : 094 BPM Atrial Rate : 094 BPM P-R Int : 124 ms QRS Dur : 082 ms QT Int : 346 ms P-R-T Axes : 055 024 048 degrees QTc Int : 432 ms Normal sinus rhythm ST elevation, consider early repolarization, pericarditis, or injury Abnormal ECG When compared with ECG of 20-MAR-2023 13:11, No significant change was found Confirmed by Darren Brito ([id number]) on 05/02/2023 12:45:09 PM Referred By: REFERRED SELF Confirmed By:Darren Brito
[2023-05-02] MEDS: ONDANSETRON INJ 2 MG/ML 2 ML VIAL IV PRN ×2 (13:46→16:58)
[2023-05-02] MEDS: HYDROmorphone INJ 0.5 MG/0.5 ML SYR IV PRN ×2 (13:46→16:58)
--- NOTE | 2023-05-02 13:53 | XCELERA ---
[id number]
[2023-05-02] MEDS ORDERED: ACETAMINOPHEN 1,000 MG/100 ML VIAL IV SCH (14:00)
--- NOTE | 2023-05-02 14:40 | CT Scan Report ---
CT abd pelvis IV con only CLINICAL HISTORY: possible mediastinal mass, pain radiating to flank TECHNIQUE: Helical axial images of the abdomen and pelvis were obtained and displayed. Automated dose lowering techniques and/or adjustment according to patient size were utilized for this exam. This e xam was performed with intravenous contrast. CT DOSE: 855.87 mGy.cm COMPARISON: Comparison is made to CT abdomen pelvis 02/01/2015 FINDINGS: Lower chest: Trace right pleural effusion. Liver: Numerous hypodensities are seen within the liver measuring up to 12 mm in diameter, not well s een on prior exam possibly due to noncontrast technique. These measure greater than simple fluid atte nuation. Gallbladder and biliary tree: No calcified gallstones. Normal caliber wall. No intra- or extrahepatic biliary ductal dilation. Pancreas: Unremarkable, no focal lesions. Spleen: Unremarkable. Adrenals: Unremarkable. Kidneys and ureters: Unremarkable. Bladder: Limited evaluation due to underdistention. Reproductive organs: Unremarkable. Bowel: Unremarkable. Lymph nodes Retroperitoneal: Unremarkable. Pelvic: Unremarkable. Mesenteric: Unremarkable. Peritoneum: Normal. Vessels: Unremarkable. Abdominal wall: Unremarkable. Bones: Unremarkable. IMPRESSION: Numerous small nodules are seen in the liver measuring greater than simple fluid density. Although no nspecific, these are concerning for metastatic disease. Liver protocol MRI can be performed on a none mergent basis. Otherwise no acute abnormalities. ACT 112: Positive. There are findings on this exam that require communication between the performing entity and the patient following Patient Test Result Information Act ([place] Act 112) guidelines. Electronically signed by: Neto Ruelas M.D. 05/02/2023 2:39 PM
--- NOTE | 2023-05-02 16:12 | Discharge Summary ---
Date of Service May 02, 2023 Admission HPI Per Admitting Provider Patient is a 32 year old immunocompromised male with a history of DVT, ulcerative colitis, arthritis due to ulcerative colitis, kidney stones, pleural effusion, and partial robotic resection of bilateral hilar/mediastinal lymphadenopathy and diffuse perilymphatic nodules presented to the ED last night with constant, worsening, substernal chest pain for the past 10 days. He reports shortness of breath with the chest pain. Both the pain and shortness of breath are worse when lying flat with radiating pain into his back and right flank. Patient also has a several month history of cough, hemoptysis, chest discomfort, and fevers found to have bilateral hilar/mediastinal lymphadenopathy and diffuse perilymphatic nodules last month. 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 He was coughing up blood for 10 weeks before he went to [facility]. He reports having a history of autoimmune disorders and at the time, physicians were suspicious of sarcoidosis. [facility] physicians have studied his case and they have not ruled out sarcoidosis but his symptoms were not fully presenting as this diagnosis. Due to his history of autoimmune disorders such as ulcerative colitis, arthritis due to ulcerative colitis (in knee and wrists especially), erythema nodosum, pyoderma gangrenosum, and lymphocytic hypophysitis who has been on high dose steroids. His doctors believed that his steroids could affect his biopsy results and as a result has been off steroids for a month and is scheduled for a PET scan this tuesday in [place] with a biopsy following this as needed. His differentials provided by physicians at the time were lymphoma, sarcoidosis, fibrosis, IgG 4 disease (which has been ruled out by IgG testing). Pt has had several months of productive cough, substernal chest pain, hemoptysis and fevers for which he had been hospitalized at [facility] 02/23-02/25 and been followed as outpatient- had workup for mediastinal lymphadenopathy including multiple chest CT scans, bronchoscopy with biopsies, concern for sarcoidosis which has since been ruled out. Pt was hospitalized at [facility] from 03/28-04/09 for these symptoms. Bronchoscopy 03/29 results include significant vascularization of hilar lymph node and vascular endobronchial nodules in right mainstem bronchus. Pt found to have diffuse perilymphatic nodules and b/l hilar/mediastinal LAD on CT. 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 Biopsy results revealed mixed B and T-cell populations. Pt saw [facility] silver miner for f/u on 04/[address] at that time apparently found increase in mediastinal mass which was concerning for lymphoma. He is scheduled for PET scan on 05/07. Pt reports worsening substernal chest pain x10 days- moderate/high severity, sharp, constant, associated with dyspnea, exacerbated by laying flat, not alleviated by Tylenol. Reports increasing fatigue and orthopnea but denies increased leg swelling or weight gain (pt has, on the contrary, lost 50+ lbs since December 2022 unintentionally). Has also had productive cough of clear sputum for past few days, denies any fever, chills. Reports sudden onset of pain radiation to R flank and lower back since day prior. This was particularly concerning for pt and he reported to ER as instructed by [facility] silver miner due to worsening pain. Pt arrived to ER hemodynamically stable. Initial evaluation- unremarkable CBC, CMP. Negative troponin. RVP negative. CXR with some b/l vascular congestion, ground-glass opacities. Chest CT with similar findings concerning for fluid overload. ER interventions include morphine 4 mg IV, Zofran 4 mg IV, fentanyl 50 mcg, Dilaudid 1 mg IV, Lasix 40 mg IV. At present, pt reports continued chest pain with radiation to flank, though did have some relief from morphine and fentanyl. Stated he would reach out to Dr. Raheel Hendrickson, his silver miner at [facility], via portal. Patient also reports that he still has pressurized chest pain, feels like there is a golf ball there. The chest pain is still worse with laying down and he is unable to take deep breaths due to the pain. While the pain medications help with the pain in his chest radiating to his back and flank, it comes back when the medicine wears off. He has had chest pain in the past when his symptoms initially began in mid- December, but reports that this chest pain is different, more midsternal and there is no pain to the esophagus area like there was last time. This chest pain is also much worse. He is coughing up mucus and sometimes blood as well. He has been treated with antibiotics and steroids in the past but is not taking any steroids currently for his PET scan appointment in [place]. Patient also reports a radiating headache from back of neck to both sides of his head. He has never had this before and has no history of migraines, visual, or auditory disturbances. Patient also has had severe nausea and vomiting over the course of the past 5 hours. Principal Diagnosis pleural effusion, mediastinal mass Discharge Exam General: Patient is an ill appearing male, awake, alert, and oriented Eye: PERRL (pupils equal and responsive to light), EOMI (extraocular motions intact) HEENT: normocephalic, atraumatic, no lymphadenopathy Respiratory: lungs CTA, however patients breaths were very shallow and limited due to chest pain, BS equal, symmetrical expansion, no rales, rhonchi or wheezing CV: normal rate and rhythm, no murmurs, rubs, or gallops. Pain in substernal chest area, right flank, and right side of lower back was reproducible upon palpation, GI: abdomen soft, non-tender, non-distended, normal bowel sounds, no organomegaly : CVA tenderness present on right side Neurologic: alert and oriented Psychiatric: calm and cooperative, appropriate mood and affect Discharge Data Allergies Allergy/AdvReac Type Severity Reaction Status Date / Time infliximab AdvReac Mild PLZ MIX Verified 05/02/23 01:42 REMICADE IN 500ML - PT DOESNT TOLERATE SMALLER VOL vedolizumab AdvReac Mild 600mg - Verified 05/02/23 01:42 must be in 500ml to tolerate Consultations 05/02/23 04:29 ED Decision to Admit Stat Ordered Studies Laboratory Results WBC 9.06 K/ul (4.8-10.8) 05/02/23 07:05 RBC 5.43 M/uL (4.70-6.10) 05/02/23 07:05 Hgb 15.9 g/dl (14.0-18.0) 05/02/23 07:05 Hct 47.8 % (42.0-52.0) 05/02/23 07:05 MCV 88.0 fL (80.0-100.0) 05/02/23 07:05 MCH 29.3 pg (25.0-34.0) 05/02/23 07:05 MCHC 33.3 g/dL (32.0-36.0) 05/02/23 07:05 RDW Std Deviation 67.7 fL (36.4-46.3) H 05/02/23 07:05 RDW Coeff of Sidra 21.0 % (11.5-14.5) H 05/02/23 07:05 Plt Count 413 K/uL (130-400) H 05/02/23 07:05 MPV 8.1 fL (9.4-12.4) L 05/02/23 07:05 Immature Gran % (Auto) 1.3 % 05/02/23 01:30 Neut % (Auto) 66.4 % 05/02/23 01:30 Lymph % (Auto) 19.4 % 05/02/23 01:30 [place] % (Auto) 9.8 % 05/02/23 01:30 Eos % (Auto) 2.3 % 05/02/23 01:30 Baso % (Auto) 0.8 % 05/02/23 01:30 Neut # (Auto) 6.08 K/uL (1.40-6.50) 05/02/23 01:30 Lymph # (Auto) 1.78 K/uL (1.20-3.40) 05/02/23 01:30 Win[place] # (Auto) 0.90 K/uL (0.11-0.59) H 05/02/23 01:30 Eos # (Auto) 0.21 K/uL (0.00-0.50) 05/02/23 01:30 Baso # (Auto) 0.07 K/uL (0.00-0.20) 05/02/23 01:30 Immature Gran # (Auto) 0.12 K/uL (0.01-0.20) 05/02/23 01:30 Polychromasia 1+ 05/02/23 01:30 Anisocytosis Present 05/02/23 01:30 Sodium 141 mmol/L (136-145) 05/02/23 07:05 Potassium 3.7 mmol/L (3.5-5.1) 05/02/23 07:05 Chloride 101 mmol/L (98-107) 05/02/23 07:05 Carbon Dioxide 31 mmol/L (21-32) 05/02/23 07:05 Anion Gap 9 (3-11) 05/02/23 07:05 BUN 17 mg/dl (6-23) 05/02/23 07:05 Creatinine 1.20 mg/dl (0.6-1.4) 05/02/23 07:05 Est Cr Clr Drug Dosing 107.3 ml/min 05/02/23 07:05 Est GFR ( Amer) 92.2 ml/min 05/02/23 07:05 Est GFR (Non-Af Amer) 79.5 ml/min 05/02/23 07:05 BUN/Creatinine Ratio 14.2 (10-20) 05/02/23 07:05 Glucose 96 mg/dl (70-99(Fasting)) 05/02/23 07:05 Calcium 9.5 mg/dl (8.6-10.3) 05/02/23 07:05 Magnesium 1.8 mg/dl (1.7-2.4) 05/02/23 07:05 Total Bilirubin 0.7 mg/dl (0.2-1.0) 05/02/23 07:05 AST 31 U/L (13-39) 05/02/23 07:05 ALT 63 U/L (7-52) H 05/02/23 07:05 Alkaline Phosphatase 87 U/L (34-104) 05/02/23 07:05 Troponin I High Sens 6.9 pg/ml (0-20) 05/02/23 01:30 B-Natriuretic Peptide 19 pg/ml (0-100) 05/02/23 05:56 Total Protein 7.0 gm/dl (6.0-8.3) 05/02/23 07:05 Albumin 4.0 gm/dl (3.4-5.0) 05/02/23 07:05 Globulin 3.0 gm/dl (2.5-4.0) 05/02/23 07:05 Albumin/Globulin Ratio 1.3 (0.9-2) 05/02/23 07:05 Lipase 72 U/L (11-82) 05/02/23 01:30 Procalcitonin < 0.05 ng/ml (0-0.5) 05/02/23 01:30 Adenovirus (PCR) Not Detected (NotDetected) 05/02/23 01:40 B. pertussis DNA (PCR) Not Detected (NotDetected) 05/02/23 01:40 B.parapertussis DNA PCR Not Detected (NotDetected) 05/02/23 01:40 C. pneumoniae DNA (PCR) Not Detected (NotDetected) 05/02/23 01:40 Coronavirus OC43 (PCR) Not Detected (NotDetected) 05/02/23 01:40 Coronavirus HKU1 (PCR) Not Detected (NotDetected) 05/02/23 01:40 Coronavirus 229E (PCR) Not Detected (NotDetected) 05/02/23 01:40 SARS-CoV-2 (PCR) Not Detected (NotDetected) 05/02/23 01:40 Coronavirus NL63 (PCR) Not Detected (NotDetected) 05/02/23 01:40 Human Metapneumovir PCR Not Detected (NotDetected) 05/02/23 01:40 Influenza Type A (PCR) Not Detected (NotDetected) 05/02/23 01:40 Influenza Type B (PCR) Not Detected (NotDetected) 05/02/23 01:40 M. pneumoniae (PCR) Not Detected (NotDetected) 05/02/23 01:40 Parainfluenza 1 (PCR) Not Detected (NotDetected) 05/02/23 01:40 Parainfluenza 2 (PCR) Not Detected (NotDetected) 05/02/23 01:40 Parainfluenza 3 (PCR) Not Detected (NotDetected) 05/02/23 01:40 Parainfluenza 4 (PCR) Not Detected (NotDetected) 05/02/23 01:40 RSV (PCR) Not Detected (NotDetected) 05/02/23 01:40 Entero/Rhino (PCR) Not Detected (NotDetected) 05/02/23 01:[address] 05/02/23 01:24 Exam(s): CT CHEST With Contrast IV Amt: 84 ML OPTIRAY 320 EXAM: CT Chest With Intravenous Contrast CLINICAL HISTORY: Reason for exam: CP radiating into back; reported mediastinal mass. TECHNIQUE: Axial computed tomography images of the chest with intravenous contrast. Automated exposure control was utilized for the study. A dose lowering technique was utilized adhering to the principles of ALARA. CONTRAST: Patient received 84 ML OPTIRAY 320 of IV contrast COMPARISON: 02/11/2023 FINDINGS: Lungs: Central groundglass opacities within the bilateral lower lobes most concerning for fluid overload. Pleural space: Small right pleural effusion. No pneumothorax. Heart: Unremarkable. No cardiomegaly. No significant pericardial effusion. No significant coronary artery calcifications. Bones/joints: Unremarkable. No acute fracture. No dislocation. Soft tissues: Unremarkable. Vasculature: Unremarkable. No thoracic aortic aneurysm. Lymph nodes: Unremarkable. No enlarged lymph nodes. IMPRESSION: Central groundglass opacities within the bilateral lower lobes most concerning for fluid overload. Electronically signed by: Vinay Fields M.D. 05/02/23 03:30 AM Chest X-Ray 05/02/23 01:24 XR chest 1V portable HISTORY: Chest pain, nonspecific COMPARISON: Chest 03/20/2023. FINDINGS: No pneumothorax. No pleural effusions. The cardiac silhouette is normal in size. No acute fractures identified. There is mild central pulmonary vascular congestion without overt edema. No new focal lung consolidations. There is a trace right pleural effusion. IMPRESSION: Mild central pulmonary vascular congestion and a trace right pleural effusion. ACT 112: Negative or not required by law. Electronically signed by: Isaias Bolivar M.D. 05/02/2023 7:07 AM Abdomen/Pelvis CT 05/02/23 04:33 CT abd pelvis IV con only CLINICAL HISTORY: possible mediastinal mass, pain radiating to flank TECHNIQUE: Helical axial images of the abdomen and pelvis were obtained and displayed. Automated dose lowering techniques and/or adjustment according to patient size were utilized for this exam. This exam was performed with intravenous contrast. CT DOSE: 855.87 mGy.cm COMPARISON: Comparison is made to CT abdomen pelvis 02/01/2015 FINDINGS: Lower chest: Trace right pleural effusion. Liver: Numerous hypodensities are seen within the liver measuring up to 12 mm in diameter, not well seen on prior exam possibly due to noncontrast technique. These measure greater than simple fluid attenuation. Gallbladder and biliary tree: No calcified gallstones. Normal caliber wall. No intra- or extrahepatic biliary ductal dilation. Pancreas: Unremarkable, no focal lesions. Spleen: Unremarkable. Adrenals: Unremarkable. Kidneys and ureters: Unremarkable. Bladder: Limited evaluation due to underdistention. Reproductive organs: Unremarkable. Bowel: Unremarkable. Lymph nodes Retroperitoneal: Unremarkable. Pelvic: Unremarkable. Mesenteric: Unremarkable. Peritoneum: Normal. Vessels: Unremarkable. Abdominal wall: Unremarkable. Bones: Unremarkable. IMPRESSION: Numerous small nodules are seen in the liver measuring greater than simple fluid density. Although nonspecific, these are concerning for metastatic disease. Liver protocol MRI can be performed on a nonemergent basis. Otherwise no acute abnormalities. ACT 112: Positive. There are findings on this exam that require communication between the performing entity and the patient following Patient Test Result Information Act ([place] Act 112) guidelines. Electronically signed by: Neto Ruelas M.D. 05/02/2023 2:39 PM 05/02/23 01:24 CT chest diagnostic w con Stat 05/02/23 04:33 CT Abd and Pelvis [CT abd pelvis IV con only] Stat Hospital Course (1) Chest pain: In summary, patient is a 32 year old immunocompromised male with a history of DVT, ulcerative colitis, arthritis due to ulcerative colitis, kidney stones, pleural effusion, and partial robotic resection of bilateral hilar/mediastinal lymphadenopathy and diffuse perilymphatic nodules presented to the ED last night with constant, worsening, substernal chest pain radiating to his right back and right flank worsened with laying down, shortness of breath, nausea, and vomiting. Patients physical exam revealed right sided CVA tenderness, reproducible chest and flank pain. Patients CT of the chest in the ED found central groundglass opacities within the bilateral lower lobes most concerning for fluid overload, his prior abdominal CT demonstrated liver hypodensities. -Pt presents with acute worsening of progressive substernal chest pain x3 months that now radiates to right flank and right lower back that is worse upon laying down in background of complicated chest disease concerning for malignancy. - Given patient's medical history and physical exam, I suspect malignancy such as lymphoma as a possible condition causing this chest pain. This is being actively evaluated at [facility]. - Given patient's negative troponin and normal EKG, less suspicious of a cardiac origin. -Does not appear to be infectious source either given negative serology. -Procalcitonin wnl -Chest CT shows b/l ground glass opacities possibly indicating fluid overload though this is likely secondary to the mass rather given the pt's euvolemic status. Patient given trial Lasix 40 mg IV x1 for symptomatic relief. -As the chest pain does radiate to the R flank, will further image with CT A/P: Numerous small nodules are seen in the liver measuring greater than simple fluid density. Although nonspecific, these are concerning for metastatic disease. Liver protocol MRI can be performed on a nonemergent basis. Otherwise no acute abnormalities. -Discharge with plan for pain control, zofran. -Patient will follow up with silver miner in [facility] for further workup and evaluation. Patient has a PET scan and Biopsy scheduled for Tuesday at [facility]. Patient advised to go to the ER if any of his symptoms change or worsen. (2) LAD (lymphadenopathy), mediastinal: -Patient's lymphadenopathy could be the cause of his chest pain and other symptoms -TTE results from 05/02/2023 revealed no emergent abnormalities. Less likely that patient has any concerning emergency conditions such as any large pleural effusion causing tamponade, or mass erosion into pericardium, and/or compression of right ventricle leading to fluid overload (however, this is less likely cause for pulmonary edema). -Patient and family have their pulmonologists number and contact in their [facility] portal and can reach out as needed (Dr. Raheel Hendrickson, [facility]- [phone]; his personal number is [phone]) and they were contacted and left a message. Patient does not yet have an oncologist and Dr. Hendrickson's office was contacted and Dr. Hendrickson was notified of patient's status. Given patient's stable vitals, he mentioned that he is comfortable with patient's discharge over hospital transfer. Dr. Hendrickson will try to move his PET scan forward for further outpatient management. Patient has an appointment in [facility] for a PET scan and biopsy as needed this Tuesday. (3) Ulcerative colitis: -Not in acute flare at present -Continue azathioprine, infliximab, and vedolizumab (4) Depression: -Continue Wellbutrin (5) Adrenal insufficiency: -Continue home hydrocortisone -held during hospitalization - Pt reports his silver miner wants no further steroid administration until PET scan on 05/07 (6) DVT (deep venous thrombosis): -Recurrent DVTs in RLE x3 -Continue Eliquis (7) Gout: -Not in acute flare at present -Continue allopurinol (8) Hypothyroidism: -Continue levothyroxine, liothyronine Total Time Total Time Spent Total Time Spent (In Minutes): >30 Discharge Plan Discharge Items Patient Disposition: Home - Self-Care Reason For Visit: CHEST PAIN Discharge Diagnosis: pleural effusion, mediastinal mass Activity: Resume your previous activity Non-emergency contact: Primary Care Provider and [employer] Call non-emergency contact if: you have any medication questions Follow-up/Referrals: Darren Flowers MD [Primary Care Provider] - Diet: Regular Addtl Attending Provider Instructions: chest pain / mediastinal mass -As we discussed, the chest pain is almost certainly due to the mediastinal mass. The differential diagnoses ("could be list") of what is causing the fullness in your chest are really all processes that could also be associated with the pain that you are havingboth simply by effect of the size of involvement, and surrounding inflammation - it is almost certain that whenever you are on steroids that was reducing either the size, the inflammation, or bothas pretty much everything that is on everyone's differential diagnosis list for what is causing this would at least temporarily respond to steroids. Unfortunately, the steroids probably adulterated the biopsy making it nondiagnostic, and it definitely makes sense that Dr. Hendrickson has you off of steroids and advance of a repeat biopsy, but unfortunately that also is likely leading the condition itself reboundhence why you are having more symptoms right now - Dr. Hendrickson is working on moving the PET scan and the biopsy up to [facility]. He did not have a date/time earlier. To make sure there are no "loose ends" I would recommend that if you have not heard from his office by tomorrow around noon, call or send a message through the portal just to make sure things are at least "work in progress" - getting a good tissue sample with the biopsy to be able to determine exactly what is going on is really harry to confirming/making a diagnosis, and then setting up more "definitive" treatments (i.e. treatment geared to getting the problem better rather than simply controlling the symptoms) - to the best that I can tell, I do not think we are seeing anything new on your scans here compared to what they had seen most recently at [facility]. also fortunately, your echocardiogram looks nice and normalthere is no evidence of accumulation of fluid around your heart/pressure on your heart/anything ominous/etc. all of these results get posted to the patient portal more or less immediately, so you should be able to have access to them today; the only thing would be if Dr. Hendrickson would like to look at the actual filmsthose do not make it to the [place] I have asked our radiology department to burn discs for you of your CT scans so that he can have them if they are helpful - unfortunately, between now and a biopsy/definitive diagnosis, there is not a lot of able to do to truly help you feel better, as much is "Band-Aid" symptoms while we wait on getting a definite diagnosis - as far as pain control goes, I think the mass and surrounding inflammation are largely what is causing the pain, although the pain that radiates around to your back also seems to be a bit from rib dysfunction/rib muscle spasmprobably brought on by the pain with breathing due to the mass. - Given that your liver only appears extremely mildly inflamed, and not at all dysfunctional, I would recommend taking Tylenol 650 mg 3 times a day [id number] as a foundation for pain control - on top of the Tylenol, I have sent a prescription for oxycodone 5 mg that you can take for "breakthrough pain" (pain that exceeds what the Tylenol alone controls). When I sent the prescription, I also saw that Dr. Hendrickson had sent a prescription for tramadolthe 2 are fairly similar, usually the oxycodone is a bit more effective/a bit "stronger"so you can use them interchangeablybut never at the same time (what I would mean by that is that you could try to take tramadol if the pain is less intense, and take the oxycodone is a similar but different medicine if the pain is more intensebut I would not take some on the same day to be on the safe side). - Moist heat may be helpful to the pain in your back and lower rib cage given that some of it appears to be referred muscle spasm - as far as nausea goes, do the best you can eating/drinking, as a "red flag", if you are not able to drink at least 60 ounces of fluid in a day, I would have a low threshold to be seen, because getting dehydrated can add problems to the mix, and you may need some IV fluids to support you. Be fairly liberal with the Zofran (ondansetron) and use it up to every 6 hours if you need for nausea/vomiting - in spite of your ulcerative colitis, if you are needing oxycodone regularly (or tramadol regularly), pay attention to bowel movementsit can still be fairly easy to get constipated, which can then lead to nausea itself as well. If you find that you are getting constipated, the simplest solution is to utilize MiraLAX, 1 capful 23 times a day. "red flags" (if you feel these symptoms, I would recommend getting seen [facility]) - any new or worse shortness of breath should be an immediate evaluation - of fever should warrant immediate considerationsyou can give it a little bit of time to see how you feel and if anything new involved, largely to decide if you need to come to the ER or can be seen in the office, but I definitely would not ignore a fever - Nausea/vomiting that does not respond nicely to Zofran, or precludes your ability to drink a minimum of 60 ounces of fluid on the day should warrant evaluation within 1-2 days or lessbefore you start to get very dehydrated - as we discussed, any new or worse symptoms that have your attention, even if it is not part of my "red flags" above certainly is worth getting evaluated. Like I had said before, if it has your attention, I would definitely want to see it. As you are going through this journey, make sure that Dr. Flowers is seeing you more or less once a monthsour specialists do a great job at what they do, but Dr. Flowers will really be the only one looking after the whole you, and making sure that things are not slipping through the cracks. Pending Studies at Discharge: No Stand-Alone Forms: My [facility], Smoking Cessation Medications and DC Order Prescriptions: Continued multivitamin,tx-minerals Tablet 1 tab PO QPM Qty: 0 calcium citrate-vitamin D3 [Calcium Citrate + D] 315-200 mg-unit Tablet 2 tabs PO BIDM Qty: 0 allopurinol 100 mg Tablet 100 mg PO QPM Qty: 0 Remicade 100 mg recon soln 20 mg IV q 4 wks Qty: 0 apixaban 5 mg tablet 5 mg PO BID Qty: 0 hydrocortisone 5 mg tablet See Rx Instructions .ROUTE .COMPLEX Qty: 120 1RF Rx Instructions: take 15mg orally in the morning;and take 5mg at lunchtime Entyvio 300 mg recon soln 600 mg IV Q4WK prednisone 5 mg tablet 5 mg PO DAILY Qty: 28 0RF Rx Instructions: to use with 10 mg for taper. to use with 5 mg tab per taper. 35 mg x 1 wk then 25 mg x 1 wk, then 15 x 1 wk, then 5 x 1 wk prednisone 10 mg tablet 10 mg PO .COMPLEX Qty: 42 0RF Rx Instructions: to use with 5 mg tab per taper. 35 mg x 1 wk then 25 mg x 1 wk, then 15 x 1 wk, then 5 x 1 wk azathioprine 50 mg tablet 100 mg PO HS Qty: 0 liothyronine 25 mcg tablet 25 mcg PO DAILYBB testosterone cypionate 200 mg/mL oil 250 mg IM WK Rx Instructions: take on tuesday cholecalciferol (vitamin D3) [Vitamin D3] 25 mcg (1,000 unit) Tablet 8,000 mcg PO HS levothyroxine 125 mcg tablet 125 mcg PO DAILYBB folic acid 1 mg Tablet 1 mg PO QAM bupropion HCl 200 mg tablet sustained-release 12 hr 200 mg PO BID prednisone 10 mg tablet 10 mg PO DIRECTED Qty: 70 0RF Rx Instructions: 4 daily x 1 wk->3 daily x 1 wk->2 daily x1wk->1 daily codeine-guaifenesin [Guaifenesin AC] 10-100 mg/5 mL liquid 10 ml PO Q4H PRN (Reason: cough) Qty: 473 0RF prednisone 20 mg tablet 20 mg PO DAILY Qty: 13 0RF Rx Instructions: take 60 mg (3 tabs) days 1-3, take 40 mg (2 tabs) days 4-5 oxycodone 5 mg tablet 5 mg PO TID PRN (Reason: pain) Qty: 20 0RF Rx Instructions: Supervising physician Darren Flowers MD [facility] [id number] Changed ondansetron 4 mg tablet,disintegrating 4 mg translingual Q6 PRN (Reason: Nausea) Qty: 30 0RF Discharge Orders: Discharge Order (Routine); Ordered 05/02/23 Ordered By: Francisco Javier Gates Admission Data Admit Date/Time: 05/02/23 04:45 Attending Provider: Francisco Javier Gates Admit Provider: Kristy York Primary Care Provider: Darren Flowers Other Providers: Alla Kline Other Interventions: Discharge Summary Assessment (RN) Last Done: 05/02/23 17:11 Supervising Physician Co-Signing Physician Notes I personally examined the patient and verified all harry points of history and exam, discussed case, and agree with decision making with Yesica Ndiaye and Dr Lu/Franklin feeling ok enough to go home. extensive discussions. reviewed films/echo. answered all questions to the best of my ability. vitals noted nad heent nc at mmm breathing unlabored no accessories good effort skin no rashes no pallor or icterus. R lower ribs and Tspine paraspinals high tone/tender/decreased ROM - direct myofascial and balanced ligamentous tension - improved some. 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 lasix did not help - no need for further treatment with this. suspect he's feeling worse because steroids were likely blunting the primary disease process - but unfortunately also made biopsy apparently nondiagnostic - off steroids feeling worse - suspect this is due to disease process escalating. fortunately stable / no "red flags" - and after extensive discussions, plan is for ongoing outpt w/u with his team at [facility] (Dr Hendrickson from [facility] informed and will try to move up PET and biopsy) - return naif if any significant worsening/red flag symptoms develop. ongoing close and repeated PCP f/u. otherwise as above
--- NOTE | 2023-05-02 19:15 | Billing Data ---
Date of Service May 02, 2023 Coding Level of Care Code 57144 INP/OBS DISCH >30 MIN
[2023-05-02] MEDS ORDERED: allopurinoL 100 MG TAB PO SCH (21:00)
[2023-05-02] MEDS ORDERED: azaTHIOprine 50 MG TAB PO SCH (21:00)
== END 2023-05-02 17:11 | disposition home or self-care (01) | DRG 187 ==
LOC: ED 01:11 → SUATTDRO 04:45 → EDINP 04:45